=== PATIENT | male | born 1980 | race Caucasian/White ===

== ENCOUNTER 2021-11-16 08:31 | Outpatient (REF) | payer BC, SELFPAY | END 2021-11-16 08:32 | disposition home or self-care (01) | LOC: HO.HMGCLDS 08:31 | PROVIDERS: Visit Provider Internal Medicine | DX: Z20.822 Contact with and (suspected) exposure to COVID-19 (principal) | CPT/HCPCS: C9803; U0003; U0005 ==

== ENCOUNTER 2022-04-27 12:13 | Outpatient (REF) | payer BC, SELFPAY ==
[2022-04-27 12:35] LABS: Binax Internal Control QC Valid; Binax Now Covid-19 Ag Positive (Negative)
== END 2022-04-27 12:14 | disposition home or self-care (01) ==
LOC: HO.HMGCLDS 12:13
PROVIDERS: Visit Provider Internal Medicine
DX: J06.9 Acute upper respiratory infection, unspecified (principal); Z20.822 Contact with and (suspected) exposure to COVID-19
CPT/HCPCS: 87811; C9803

== ENCOUNTER 2024-02-27 07:18 | Emergency (ER) | payer SELFPAY ==
[2024-02-27] VITALS (8 sets, daily range): BP systolic 133–140; BP diastolic 74–83; PULSE 78–95; RESP 14–20; TEMP 36.3–36.4; O2SAT 96–100; BMI 22.5
--- NOTE | ~2024-02-27 | US_ITS ---
EXAMINATION: US ABDOMEN LIMITED CLINICAL INFORMATION: Right upper quadrant pain and elevated liver function tests.. COMPARISON: None available. TECHNIQUE: Real-time imaging of the right upper quadrant abdominal viscera. FINDINGS: PANCREAS: Normal. LIVER: The liver is prominent at 20.5 cm cephalocaudad. Echotexture normal. No focal mass. No intrahepatic biliary dilatation. GALLBLADDER: Normal. The gallbladder is physiologically distended without evidence of stones, sludge, polyps, wall thickening or pericholecystic fluid. COMMON BILE DUCT: Normal in caliber measuring 0.3 cm in diameter. RIGHT KIDNEY: Normal. No hydronephrosis. No renal calculi or focal parenchymal lesions. The kidney measures 11.8 cm in maximum dimension. FREE FLUID: None. US/US abdomen limited IMPRESSION: Hepatomegaly. No gallstones or biliary dilatation.
--- NOTE | ~2024-02-27 | XR_ITS ---
EXAMINATION: XR CHEST CLINICAL INFORMATION: Shortness of breath and chest pain COMPARISON: None available. TECHNIQUE: Frontal view of the chest was obtained. FINDINGS: Lungs clear. Heart and pulmonary vessels are normal. No congestive change. Slight elevation of the right hemidiaphragm of uncertain chronicity. XR/XR chest 1V IMPRESSION: No active disease.
--- NOTE | 2024-02-27 07:19 | ECG_ITS ---
Test Reason : CHEST PAIN Blood Pressure : / mmHG Vent. Rate : 089 BPM Atrial Rate : 089 BPM P-R Int : 158 ms QRS Dur : 094 ms QT Int : 386 ms P-R-T Axes : 084 069 070 degrees QTc Int : 469 ms Artifact in tracing Normal sinus rhythm Normal ECG No previous ECGs available Referred By: Generic ED Physician Electronically Signed By:CHARLOTTE MARCELO
--- NOTE | 2024-02-27 07:31 | ED.CHESTPAIN ---
HPI - Chest Pain General Chief Complaint: Chest Pain Stated Complaint: CHEST PAIN Time Seen by Provider: 02/27/24 07:20 Source: patient and family Mode of arrival: ambulatory Limitations: no limitations History of Present Illness HPI narrative: 44 y/o male with history of HTN presents today for evaluation of tight left-sided chest pain since last night.When he woke up this morning, the pain was worse and he had a nosebleed this morning. He states that he took aspirin last night for pain. Reports that he is able to move his left upper extremity due to weakness but reports intact sensation. Pain ranges from left lateral cervical region down left upper extremity. Pain is localized beneath inferior aspect of left scapula. Has associated cramping of the left lower extremity that is worse with the chest pain. Denies recent sickness or fevers. No tearing or ripping pain that radiates to the back. Denies tobacco use or smoking. Reports occasional alcohol use. On further questioning patient reports every other day use of alcohol, about half a pint. Further questioning reveals about 6 ounces of hard liquor daily. is at bedside and reports that patient has been vomiting bile and frequent nosebleeds in the morning. MD complaint: chest pain Onset (ago): day(s) Timing of current episode: constant Prior episodes: No Onset: during rest and during exertion Pain location: left chest Pain radiation: left arm and neck Severity: severe Quality: tightness Relieving factors: nothing Exacerbating factors: nothing Associated symptoms: nausea, vomiting and diaphoresis Treatment prior to arrival: aspirin Risk Factors Coronary artery disease risk factors: hypertension Related Data Previous Rx's ?Medication ?Instructions ?Recorded lidocaine 5 % topical patch 1 patch topical DAILY #15 ea 02/27/24 Allergies Allergy/AdvReac Type Severity Reaction Status Date / Time seafood Allergy Rash Verified 02/27/24 07:27 Review of Systems Review of Systems: Yes all other systems are reviewed and are negative PMFSH Social History Social History Smoked in Last 30 Days: No Use of substances other than those prescribed or required for medical reasons: No Advance Directives: No Advance Directives Information Provided: Yes Physical Exam Vital Signs: Vital Signs: Last Vital Signs Temp 97.4 F 02/27/24 12:26 Pulse 95 02/27/24 12:26 Resp 14 02/27/24 12:26 BP 133/82 02/27/24 12:26 Pulse Ox 96 04/16/24 12:26 O2 Del Method Room Air 02/27/24 12:26 BMI result Body Mass Index 22.5 Const: General: alert, Physically active, in distress, anxious and diaphoretic Nutritional Appearance: average body habitus and well nourished Orientation/consciousness: patient oriented x3 Limitations: no limitations HEENT: Head: Yes normal to inspection and Yes normocephalic Ears: hearing grossly normal bilaterally General nose exam: Normal external nose present, Normal nares present, Abnormal mucous membranes and turbinates present and no epistaxis Face and sinus: Yes face symmetric Mouth: Normal oral and palatal mucosa present Eyes: Visual Gonzalez: normal visual gonzalez by confrontation Conjunctivae: conjunctivae normal Sclerae: sclerae normal Corneas: corneas normal Neck: Neck: Yes normal visual inspection and Yes full ROM Lymphatic: no lymphadenopathy noted Chest: Chest palpation & inspection: normal inspection of the chest and abnormal palpation of chest wall (reports pain with palpation) Chest/axillae images: 1. 2. 3. Resp: Effort & Inspection: not able to speak in complete sentences (crying, tachypneic) Auscultation: clear to auscultation bilaterally, no crackles, no rales, no rhonchi, no wheezes and lung sounds not diminished Cardio: Rate: regular rate Rhythm: regular rhythm Heart sounds: S1 normal heart sound present and S2 normal heart sound present Bruits: no abdominal aortic bruits Peripheral pulses: Peripheral pulses 2+ throughout GI: Inspection: Yes normal to inspection, No Abdominal wall edema, No distended, No obesity, No visible herniation and No visible pulsation Palpation (GI): No Abdominal aortic bruit present, Soft to palpation, not firm, Tenderness to palpation present (GI) (reports tenderness to palpation epigastric and bilaterally upper quadrants) in the epigastrum, in the LUQ and in the RUQ, no guarding, not rigid, No hepatosplenomegaly present, no hernias, no masses and no pulsatile masses Auscultation: normal bowel sounds Neuro: General: patient oriented x3 Cranial nerves: Yes Facial sensation intact/muscles of mastication intact Course Reevaluation(s) Reevaluation #1: patient with a host of complaints including chest pain, feeling weak, shakey, vomiting, leg cramping and not sleeping. Patient did the entire interview with his eyes closed, very anxious. Serial EKG and troponin negative, ddimer negative. My impression is anxiety will give some benzodiazepines Time: 11:17 Medications Administered Discontinued Medications Generic Name Dose Route Start Last Admin Trade Name Simran PRN Reason Stop Dose Admin Aspirin 325 mg 02/27/24 07:34 02/27/24 07:40 Aspirin 325 Mg Tablet PO 02/27/24 07:35 325 mg ONCE ONE Administration Sodium Chloride 1,000 mls @ 999 mls/hr 02/27/24 07:30 02/27/24 10:01 Ns IVCONT 02/27/24 08:30 Infused .Q1H1M LAURI Infusion Lactated Ringer's 1,000 mls @ 999 mls/hr 02/27/24 09:45 02/27/24 11:16 Lr IV 02/27/24 10:45 Infused .Q1H1M LAURI Infusion Lorazepam 1 mg 02/27/24 11:12 02/27/24 11:16 Lorazepam 2 Mg/Ml Vial IVPUSH 02/27/24 11:13 1 mg ONCE ONE Administration Morphine Sulfate 2 mg 02/27/24 07:34 02/27/24 07:43 Morphine Sulfate 2 Mg/Ml Cartridge IVPUSH 02/27/24 07:35 2 mg ONCE ONE Administration Protocol Morphine Sulfate 2 mg 02/27/24 08:17 02/27/24 08:29 Morphine Sulfate 2 Mg/Ml Cartridge IVPUSH 02/27/24 08:18 2 mg ONCE ONE Administration Protocol Nitroglycerin 0.4 mg 02/27/24 07:26 02/27/24 07:42 Nitroglycerin 0.4 Mg Tab.Subl SUBLINGUAL 02/27/24 07:27 0.4 mg ONCE ONE Administration Ondansetron HCl 4 mg 02/27/24 07:51 02/27/24 07:54 Ondansetron Hcl 4 Mg/2 Ml Vial IVPUSH 02/27/24 07:52 4 mg ONCE ONE Administration Medical Decision Making Medical Decision Making MDM Narrative: 44 y/o male with history of hypertension presents today for evaluation of tight left-sided chest pain that started last night. This morning, he acute worsening of the chest with associated nose bleed, left-sided weakness and lower extremity cramping. On inital evaluation, he was in visible discomft, clenching his chest. ECG obtained on arrival was normal sinus rhythm with ventricular rate of 89, no ST changes, depression or elevations. With suspicion for ACS, ordered troponin, ASA and morphine. Patient had moderate relief of pain. He became nauseous and starting vomiting, relieved with IV zofran. With normal ECG and negative troponin, low suspicion for ACS or PA. HEART score is low suspicion for major adverse cardiac event. Labs are significant for hyperchloremic anion gap metabolic acidosis, which could be due to vomiting. AST and ALT are elevated with nearly 2:1 ratio, ordered US abdomen and lipase to assess for cholecystitis and pancreatitis. On exam, pain is reproducible with palpation of substernal/ xiphoid region. PERC score for PE is 0, <2% of PE, low clinical suspicion for PE at this time. Will hold off on CTA. 09:55- On reevaluation, patient reports continued pain on L lateral chest, reports pain with inspiration. Will order D-dimer at this time. 10:48 D-dimer negative, low suspicion for PE, dissection, acute occlusion. At this time, patient has 2 normal ECG and 2 negative troponins, low clinical suspicion for ACS. US abdomen is remarkable for hepatomegaly. In the setting of an elevated AST & ALT (2:1), high suspicion for alcoholic hepatitis. Ordered hepatitis panel to r/o other etiologies. 11:53- Patient is resting after administration of ativan. He reports improvement of pain but still present at 5/10. High clinical suspicion that pain is likely muscular and in part due to anxiety considering negative ACS and PE work up. Patient is resting comfortably and VSS. Incidental finding of alcoholic hepatitis, which is likely cause of patient's abdominal pain. Safe to discharge home with lidocaine patch and strict return precuations. Patient in agreement with plan. Differential Diagnosis Differential Diagnoses: The differential diagnosis associated with the presentation includes pulmonary embolism, alcoholic hepatitis, splenic rupture, ACS, cholecystitis, pancreatitis, PA, angina, unstable angina, AAA, aortic dissection, pericarditis, myocarditis, costochronditis, anxiety Admission/Observation Consideration of admission/observation: Escalation of care including admission/observation considered Lab Data MDM Lab Attestation statement: I reviewed the patient's lab results. elevated LFTs, mild hyponatremia 02/27/24 07:35 02/27/24 07:35 Labs: Lab Results 04/16/24 04/16/24 04/16/24 Range/Units 07:35 08:07 09:41 WBC 6.9 (4.8-10.8) X10*3/uL RBC 4.41 L (4.60-5.80) X10*6/uL Hgb 14.0 (14.0-18.0) g/dl Hct 39.7 L (42.0-52.0) % MCV 90.0 (80.0-98.0) fL MCH 31.7 (27.0-33.0) pg MCHC 35.3 (31.0-36.0) g/dl RDW 16.4 H (11.0-16.0) % Plt Count 251 (160-400) X10*3/uL MPV 10.6 (9.4-12.4) fL Immature Gran % (Auto) 0.4 (0.0-0.4) % Neut % (Auto) 65.8 (45-73) % Lymph % (Auto) 26.5 (20-40) % [place]dwell % (Auto) 6.2 (2-11) % Eos % (Auto) 0.1 (0-4) % Baso % (Auto) 1.0 (0-2) % Lymph # (Auto) 1.8 (1.2-4.9) X10*3/uL [place]dwell # (Auto) 0.4 (0.1-1.2) X10*3/uL Eos # (Auto) 0.0 (0.0-0.4) X10*3/uL Baso # (Auto) 0.1 (0.0-0.2) X10*3/uL Abs Immat Gran (auto) 0.03 (0.00-0.03) X10*3/uL Absolute Neuts (auto) 4.5 (2.0-8.3) x10*3/uL Absolute Nucleated RBC 0.000 (0.0-0.012) X10*3/uL Nucleated RBC % (auto) 0.0 (0.0-0.2) /100WBC PT 13.6 H (11.1-13.3) SEC INR 1.1 (0.9-1.1) APTT 36.6 (26.0-36.8) SEC D-Dimer High Sensitivty NG/ML Sodium 132 L (135-145) mmol/L Potassium 4.1 (3.3-5.1) mmol/L Chloride 95 L (96-108) mmol/L Carbon Dioxide 19 L (22-29) mmol/L Anion Gap 22 H (12-20) BUN 20 H (9-16) mg/dL Creatinine 1.14 (0.5-1.4) mg/dL Estim Creat Clear Calc 82.1 Estimated GFR > 60 Random Glucose 93 (60-115) mg/dL Calcium 9.1 (8.4-10.2) mg/dL Magnesium 1.6 (1.6-2.6) mg/dL Total Bilirubin 2.3 H (0.0-1.0) mg/dL Direct Bilirubin 1.1 H (0.0-0.5) mg/dL AST 284 H (5-37) U/L ALT 103 H (0-40) U/L Alkaline Phosphatase 296 H (39-117) U/L Troponin I High Sens < 2.7 (<3.5-35.0) ng/L B-Natriuretic Peptide 18 (<100) pg/mL Total Protein 9.5 H (6.5-8.0) g/dL Albumin 3.4 L (3.5-5.0) g/dL Lipase 70 (8-78) U/L Urine Color Dark Yellow Urine Appearance Clear Urine pH 5.5 (5.0-9.0) Ur Specific [place] 1.025 (1.005-1.025) Urine Protein Trace (Neg-Trace) mg/dL Urine Glucose (UA) Negative (Negative) mg/dL Urine Ketones Trace (Negative) mg/dL Urine Blood Negative (Negative) Urine Nitrite Negative (Negative) Ur Leukocyte Esterase Negative (Negative) Urine Opiates Screen POSITIVE H (Not Detect) Urine Fentanyl Screen Not Detected (Not Detect) Ur Barbiturates Screen Not Detected (Not Detect) Ur Phencyclidine Scrn Not Detected (Not Detect) Ur Amphetamines Screen Not Detected (Not Detect) U Benzodiazepines Scrn Not Detected (Not Detect) Urine Cocaine Screen Not Detected (Not Detect) U Marijuana (THC) Screen POSITIVE H (Not Detect) Influenza Type A (PCR) NEGATIVE (Negative) Influenza Type B (PCR) NEGATIVE (Negative) RSV RNA Qual (PCR) NEGATIVE (Negative) SARS-CoV-2 RNA (RT-PCR) NEGATIVE (Negative) 02/27/24 Range/Units 10:07 WBC (4.8-10.8) X10*3/uL RBC (4.60-5.80) X10*6/uL Hgb (14.0-18.0) g/dl Hct (42.0-52.0) % MCV (80.0-98.0) fL MCH (27.0-33.0) pg MCHC (31.0-36.0) g/dl RDW (11.0-16.0) % Plt Count (160-400) X10*3/uL MPV (9.4-12.4) fL Immature Gran % (Auto) (0.0-0.4) % Neut % (Auto) (45-73) % Lymph % (Auto) (20-40) % Caldwell % (Auto) (2-11) % Eos % (Auto) (0-4) % Baso % (Auto) (0-2) % Lymph # (Auto) (1.2-4.9) X10*3/uL [place]dwell # (Auto) (0.1-1.2) X10*3/uL Eos # (Auto) (0.0-0.4) X10*3/uL Baso # (Auto) (0.0-0.2) X10*3/uL Abs Immat Gran (auto) (0.00-0.03) X10*3/uL Absolute Neuts (auto) (2.0-8.3) x10*3/uL Absolute Nucleated RBC (0.0-0.012) X10*3/uL Nucleated RBC % (auto) (0.0-0.2) /100WBC PT (11.1-13.3) SEC INR (0.9-1.1) APTT (26.0-36.8) SEC D-Dimer High Sensitivty < 150 NG/ML Sodium (135-145) mmol/L Potassium (3.3-5.1) mmol/L Chloride (96-108) mmol/L Carbon Dioxide (22-29) mmol/L Anion Gap (12-20) BUN (9-16) mg/dL Creatinine (0.5-1.4) mg/dL Estim Creat Clear Calc Estimated GFR Random Glucose (60-115) mg/dL Calcium (8.4-10.2) mg/dL Magnesium (1.6-2.6) mg/dL Total Bilirubin (0.0-1.0) mg/dL Direct Bilirubin (0.0-0.5) mg/dL AST (5-37) U/L ALT (0-40) U/L Alkaline Phosphatase (39-117) U/L Troponin I High Sens < 2.7 (<3.5-35.0) ng/L B-Natriuretic Peptide (<100) pg/mL Total Protein (6.5-8.0) g/dL Albumin (3.5-5.0) g/dL Lipase (8-78) U/L Urine Color Urine Appearance Urine pH (5.0-9.0) Ur Specific [place] (1.005-1.025) Urine Protein (Neg-Trace) mg/dL Urine Glucose (UA) (Negative) mg/dL Urine Ketones (Negative) mg/dL Urine Blood (Negative) Urine Nitrite (Negative) Ur Leukocyte Esterase (Negative) Urine Opiates Screen (Not Detect) Urine Fentanyl Screen (Not Detect) Ur Barbiturates Screen (Not Detect) Ur Phencyclidine Scrn (Not Detect) Ur Amphetamines Screen (Not Detect) U Benzodiazepines Scrn (Not Detect) Urine Cocaine Screen (Not Detect) U Marijuana (THC) Screen (Not Detect) Influenza Type A (PCR) (Negative) Influenza Type B (PCR) (Negative) RSV RNA Qual (PCR) (Negative) SARS-CoV-2 RNA (RT-PCR) (Negative) Independent Interpretation I performed an independent interpretation of an: EKG, Plain X-Ray and Ultrasound Interpretation: ECG: normal sinus rhythm with ventricular rate of 89, no ST changes, depression or elevations. CXR: normal chest xray with clear costophrenic angles and rib markings, no fracture US w/ hepatomegaly, agree w/ radiology read Radiology Impression Discussion of test interpretation with radiology: I have reviewed the radiologist's reading. Radiologist Impression: Test Reason : CHEST PAIN Blood Pressure : / mmHG Vent. Rate : 089 BPM Atrial Rate : 089 BPM P-R Int : 158 ms QRS Dur : 094 ms QT Int : 386 ms P-R-T Axes : 084 069 070 degrees QTc Int : 469 ms Normal sinus rhythm Normal ECG No previous ECGs available Test Reason : CHEST PAIN Blood Pressure : / mmHG Vent. Rate : 087 BPM Atrial Rate : 087 BPM P-R Int : 174 ms QRS Dur : 100 ms QT Int : 386 ms P-R-T Axes : 073 062 061 degrees QTc Int : 464 ms Normal sinus rhythm Normal ECG When compared with ECG of 27-FEB-2024 07:21, No significant change was found EXAMINATION: XR CHEST CLINICAL INFORMATION: Shortness of breath and chest pain COMPARISON: None available. TECHNIQUE: Frontal view of the chest was obtained. FINDINGS: Lungs clear. Heart and pulmonary vessels are normal. No congestive change. Slight elevation of the right hemidiaphragm of uncertain chronicity. XR/XR chest 1V IMPRESSION: No active disease. EXAMINATION: US ABDOMEN LIMITED CLINICAL INFORMATION: Right upper quadrant pain and elevated liver function tests.. COMPARISON: None available. TECHNIQUE: Real-time imaging of the right upper quadrant abdominal viscera. FINDINGS: PANCREAS: Normal. LIVER: The liver is prominent at 20.5 cm cephalocaudad. Echotexture normal. No focal mass. No intrahepatic biliary dilatation. GALLBLADDER: Normal. The gallbladder is physiologically distended without evidence of stones, sludge, polyps, wall thickening or pericholecystic fluid. COMMON BILE DUCT: Normal in caliber measuring 0.3 cm in diameter. RIGHT KIDNEY: Normal. No hydronephrosis. No renal calculi or focal parenchymal lesions. The kidney measures 11.8 cm in maximum dimension. FREE FLUID: None. US/US abdomen limited IMPRESSION: Hepatomegaly. No gallstones or biliary dilatation. Independent Historian Clinical information obtained from an independent historian. History obtained from or confirmed by: Spouse Tests considered The following testing was considered but not selected: CTA considered, ddimer negative, low clinical suspicion without risk factors. Prescription Management I considered prescription management with: Pain Medication Chronic Conditions Patient?s care impacted by: Hypertension Scores Heart Score History: -2- highly suspicious ECG: -0- normal Age: -0- < or = 45 Risk factory: -1- 1 or 2 risk factors Troponin: -0- < or = normal limit Score: 3 Risk: 1.7% Critical Care Time Critical Care Time Critical Care Time: Yes Total Critical Care Time: 49 Attestation: I have personally provided critical care time exclusive of time spent on separately billable procedures. Time includes review of lab data, radiology results, multiple bedside re-evaluations and reassessements and monitoring for potential decompensation. Intervention performed as documented. Discharge Plan Discharge Clinical Impression: Atypical chest pain, Alcoholic hepatitis Patient Disposition: Home, Self-Care Instructions: Chest Pain (ED), Chest Wall Pain (ED), Alcoholic Hepatitis (ED) Additional Instructions: Your workup today in the ED was reassuring. Your cardiac enzymes and ECG were negative for a heart attack and not concerning for cardiac injury. Your lab for blood clots (D-dimer) was also negative. Your labs shows elevated liver enzymes and US show enlargement of your liver. This is consistent with alcoholic hepatitis. Your abdominal pain is most likely due to this. It can also cause nausea and vomiting. It is important that you drink plenty of water and limit consumption of alcoholic beverages. Use the prescribed lidocaine patches to apply to your back for pain. If you develop new or worsening symptoms call 911 or come back to the ER for further evaluation. Prescriptions: New lidocaine 5 % adhesive patch,medicated 1 patch topical DAILY Qty: 15 0RF Rx Instructions: leave on most painful area for up to 12 hrs Referrals: [facility] [place] Family Medicine [Provider Group] [facility] [place] [Provider Group] Stand Alone Forms: Work/School Release Interventions: ED Discharge Assessment Last Done: 02/27/24 12:26 Discharge Date/Time: 02/27/24 12:28 Print Language: Kazakh
[2024-02-27 07:39] LABS: MANUAL DIFF FLAG NO
[2024-02-27] MEDS: Aspirin 325 MG TABLET PO (07:40)
[2024-02-27 07:41] LABS: Basophils Absolute Auto 0.1 X10*3/uL (0.0-0.2); Eosinophils Percent Auto 0.1 % (0-4); Hematocrit 39.7 % (42.0-52.0); Imm Gran Abs Auto 0.03 X10*3/uL (0.00-0.03); Imm Gran Pct Auto 0.4 % (0.0-0.4); Lymphocytes Absolute Auto 1.8 X10*3/uL (1.2-4.9); Lymphocytes Percent Auto 26.5 % (20-40); Mean Corpuscular HGB Conc 35.3 g/dl (31.0-36.0); Mean Corpuscular Hemoglobin 31.7 pg (27.0-33.0); Mean Platelet Volume 10.6 fL (9.4-12.4); Monocytes Absolute Auto 0.4 X10*3/uL (0.1-1.2); Monocytes Percent Auto 6.2 % (2-11); Neutrophils Absolute Auto 4.5 x10*3/uL (2.0-8.3); Neutrophils Percent Auto 65.8 % (45-73); Platelet Count 251 X10*3/uL (160-400); Red Blood Count 4.41 X10*6/uL (4.60-5.80); Red Cell Distribution Width 16.4 % (11.0-16.0); White Blood Count 6.9 X10*3/uL (4.8-10.8)
[2024-02-27] MEDS: Nitroglycerin 0.4 MG TAB.SUBL SUBLINGUAL (07:42)
[2024-02-27] MEDS: Morphine Sulfate 2 MG/ML CARTRIDGE IVPUSH ×2 (07:43→08:29)
[2024-02-27] MEDS: 0.9 % Sodium Chloride 1,000 ML 999 ML IVCONT (07:44)
[2024-02-27 07:46] LABS: INTERNATIONAL NORM RATIO 1.1 (0.9-1.1); Prothrombin Time 13.6 SEC (11.1-13.3)
[2024-02-27 07:49] LABS: Partial Thromboplastin Time 36.6 SEC (26.0-36.8)
[2024-02-27] MEDS: ondansetron HCL 4 MG/2 ML VIAL IVPUSH (07:54)
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
[2024-02-27 08:03] LABS: B Type Natriuretic Peptide 18 pg/mL (<100)
[2024-02-27 08:11] LABS: Alanine Aminotransferase 103 U/L (0-40); Albumin Level 3.4 g/dL (3.5-5.0); Alkaline Phosphatase 296 U/L (39-117); Anion Gap 22 (12-20); Aspartate Amino Transferase 284 U/L (5-37); Bilirubin Direct 1.1 mg/dL (0.0-0.5); Bilirubin Total 2.3 mg/dL (0.0-1.0); Blood Urea Nitrogen 20 mg/dL (9-16); Calcium 9.1 mg/dL (8.4-10.2); Carbon Dioxide 19 mmol/L (22-29); Chloride 95 mmol/L (96-108); Creatinine Clr Calc Pharmacy 82.1; Estimated Glomerular Filt Rate > 60; Glucose Random 93 mg/dL (60-115); Magnesium 1.6 mg/dL (1.6-2.6); Potassium 4.1 mmol/L (3.3-5.1); Sodium 132 mmol/L (135-145); Total Protein 9.5 g/dL (6.5-8.0); Troponin-I High Sensitivity < 2.7 ng/L (<3.5-35.0)
[2024-02-27 08:46] LABS: Lipase 70 U/L (8-78)
[2024-02-27 08:57] LABS: Influenza A PCR NEGATIVE (Negative); Influenza B PCR NEGATIVE (Negative); Resp Syncy Virus RNA Qual PCR NEGATIVE (Negative); SARS COV2 PCR INHOUSE NEGATIVE (Negative)
--- NOTE | 2024-02-27 09:37 | PC.NURSE ---
Pt appears more comfortable, reports his pain has improved to 5/10.
[2024-02-27 09:50] LABS: Appearance Urine Clear; Color Urine Dark Yellow; Glucose Urine UA Negative (Negative); Leukocyte Esterase Urine Negative (Negative); Nitrite Urine Negative (Negative); PH 5.5 (5.0-9.0); Specific Gravity - Urine 1.025 (1.005-1.025); Urine Blood Negative (Negative); Urine Ketones Trace mg/dL (Negative); Urine Protein Trace mg/dL (Neg-Trace)
[2024-02-27 09:56] LABS: Amphetamine Screen Urine Not Detected (Not Detect); Barbiturates, Urine Not Detected (Not Detect); Benzodiazepines Screen Urine Not Detected (Not Detect); Cannabinoid Screen Urine POSITIVE (Not Detect); Cocaine Screen Urine Not Detected (Not Detect); Fentanyl, urine Not Detected (Not Detect); Opiate Screen Urine POSITIVE (Not Detect); Phencyclidine Screen Urine Not Detected (Not Detect)
--- NOTE | 2024-02-27 09:58 | ECG_ITS ---
Test Reason : CHEST PAIN Blood Pressure : / mmHG Vent. Rate : 087 BPM Atrial Rate : 087 BPM P-R Int : 174 ms QRS Dur : 100 ms QT Int : 386 ms P-R-T Axes : 073 062 061 degrees QTc Int : 464 ms Normal sinus rhythm Normal ECG When compared with ECG of 27-FEB-2024 07:21, No significant change was found Referred By: Damaris Hubbard Electronically Signed By:CHARLOTTE MARCELO
[2024-02-27] MEDS: Lactated Ringers 1,000 ML 999 ML IV (10:01)
[2024-02-27 10:23] LABS: D Dimer High Sensitivity < 150 NG/ML
[2024-02-27 10:39] LABS: Troponin-I High Sensitivity < 2.7 ng/L (<3.5-35.0)
--- NOTE | 2024-02-27 10:58 | PC.NURSE ---
Pt reports increase in chest pain/ tightness. Provider alerted, awaiting new order. VSS.
[2024-02-27] MEDS: LORazepam 2 MG/ML VIAL 1 MG IVPUSH (11:16)
== END 2024-02-27 12:28 | disposition home or self-care (01) ==
PROVIDERS: Physician Assistant; Emergency Provider Emergency Medicine
DX: R07.89 Other chest pain (principal); K70.10 Alcoholic hepatitis without ascites; I10 Essential (primary) hypertension; Z03.818 Encounter for observation for suspected exposure to other biological agents ruled out
CPT/HCPCS: 0241U; 36415; 71045; 76705; 80048; 80076; 80307; 81003; 83690; 83735; 83880; 84484; 85025; 85379; 85610; 85730; 93005; 96361; 96374; 96375; 96376; 99285; J2060; J2270; J2405; J7120

== ENCOUNTER → 2024-02-27 07:19 | Outpatient (BNV) | payer SELFPAY | PROVIDERS: Emergency Provider Emergency Medicine; Visit Provider Internal Medicine | DX: R07.9 Chest pain, unspecified (principal) | CPT/HCPCS: 93010 ==

== ENCOUNTER 2025-09-23 11:37 | Outpatient (AMB) | payer BC, SELFPAY ==
--- NOTE | 2025-09-23 11:42 | HO.NEPHOV ---
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 He recently had left flank pain with hematuria. He has history of renal calculus needing intervention in the past. This time he has passed the stone and seen urologist. Imaging done during this presentation showed him to have a renal mass as well as pre sacral mass. He had an intentional weight loss of 15 lb with night sweats, nausea, poor appetite, back pain and intermittent vomiting he also had recent gout. The renal mass was thought to be a hemorrhagic cyst. His renal functions have been normal. His blood pressure is well controlled on amlodipine. He had undergone biopsy of the presacral mass which was inconclusive and is scheduled for CT scan with contrast as per General surgery. He is not taking any diuretic. He denies taking excessive nonsteroidal anti-inflammatories. [facility] Medical History (Updated 09/23/25 @ 13:36 by Houston Meng MD) Presacral mass Left kidney mass Kidney stone GERD (gastroesophageal reflux disease) Surgical History (Updated 09/23/25 @ 11:52 by Galilea Riojas MA) H/O endoscopy H/O colonoscopy History of kidney surgery H/O hernia repair Family History (Updated 09/23/25 @ 11:46 by Galilea Riojas MA) Maternal Uncle Kidney transplant status Mother Kidney disease Breast cancer Sister Kidney disease Maternal Aunt Cervical cancer Father Prostate cancer Seizure Maternal Grandmother Alzheimer's dementia Social History (Updated 09/23/25 @ 11:48 by Galilea Riojas MA) Alcohol intake: current Comment: Socially Patient Tobacco Use Status: Never used Tobacco Review of Systems Const All systems reviewed & are unremarkable except as noted in HPI and below Physical Exam Vital Signs: Last Vital Signs Pulse 91 09/23/25 11:49 BP 140/90 H 09/23/25 11:49 Pulse Ox 97 09/23/25 11:49 Oxygen Delivery Method Room Air 09/23/25 11:49 BMI result Body Mass Index 24.7 Const General: comfortable and no acute distress Orientation/consciousness: patient oriented x3 HEENT Head: Yes normocephalic Mouth: Normal oral and palatal mucosa present Eyes EOM: EOMs intact bilaterally Neck Neck: Yes supple Resp Auscultation: clear to auscultation bilaterally Cardio Jugular venous distension: no JVD Rate: regular rate GI Palpation (GI): Soft to palpation Auscultation: normal bowel sounds General: Yes no CVA tenderness Back/Spine/Pelvis Back: no CVA tenderness Skin General skin exam: no rashes or lesions noted Neuro General: patient oriented x3 and moves all extremities Extrem General: Yes no pedal edema Results Reviewed Nephrology Results: Hgb, (14.0-18.0) 14.0 g/dl 02/27/24 WBC, (4.8-10.8) 6.9 X10*3/uL 02/27/24 Plt Count, (160-400) 251 X10*3/uL 02/27/24 Sodium, (135-145) 132 mmol/L L 02/27/24 Potassium, (3.3-5.1) 4.1 mmol/L 24 Chloride, (96-108) 95 mmol/L L 24 Carbon Dioxide, (22-29) 19 mmol/L L 02/27/24 BUN, (9-16) 20 mg/dL H 02/27/24 Creatinine, (0.5-1.4) 1.14 mg/dL 02/27/24 Calcium, (8.4-10.2) 9.1 mg/dL 02/27/24 Urine Protein, (Neg-Trace) Trace mg/dL 02/27/24 Assessment & Plan Assessment & Plan (1) Hypokalemia: Code(s): E87.6 - Hypokalemia Category: Medical (2) Renal mass: Code(s): N28.89 - Other specified disorders of kidney and ureter Category: Medical (3) Kidney stone: Code(s): N20.0 - Calculus of kidney Category: Medical (4) Renal cyst: Code(s): N28.1 - Cyst of kidney, acquired Category: Medical (5) Gout: Code(s): M10.9 - Gout, unspecified Category: Medical Qualifiers: Gout site: toe Gout etiology: unspecified cause Chronicity: acute Laterality: right Qualified Code(s): M10.9 - Gout, unspecified Plan Edgardo has 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 He has seen Urology. He had been having hypokalemia due to vomiting. He has a presacral mass as well as hepatomegaly and has seen Oncology and General surgery. Lymphoma/plasmacytoma/sarcoma needs to be ruled out. Oncology is following up the same. He is hypertensive and his blood pressure is well controlled on current medication regimen. His urine output is good. He does not have any orthostatic symptoms. He will need to be initiated on low-dose allopurinol and should keep his uric acid under 6. I shall initiate workup for his renal calculus and optimize his medication regimen for it with time based on evolving data. Answered all questions and follow-up was given. Orders: Orders Renin 3 Months E87.6 - Hypokalemia Protein Creatinine Ratio, Ur 3 Months E87.6 - Hypokalemia, N20.0 - Calculus of kidney, N28.1 - Cyst of kidney, acquired, N28.89 - Other specified disorders of kidney and ureter Immunofixation, Random Urine 3 Months E87.6 - Hypokalemia, N20.0 - Calculus of kidney, N28.1 - Cyst of kidney, acquired, N28.89 - Other specified disorders of kidney and ureter Lactate Dehydrogenase 3 Months N28.89 - Other specified disorders of kidney and ureter Aldost/Renin 3 Months E87.6 - Hypokalemia Aldosterone 3 Months E87.6 - Hypokalemia Immunofixation Pnl, Serum 3 Months E87.6 - Hypokalemia, N20.0 - Calculus of kidney, N28.1 - Cyst of kidney, acquired, N28.89 - Other specified disorders of kidney and ureter Coding Level of Care Code New Pt Level 4 (99539) Diagnoses Hypokalemia E87.6 Renal mass N28.89 Kidney stone N20.0 Renal cyst N28.1 Acute gout involving toe of right foot, unspecified cause M10.9 Gout site: toe Gout etiology: unspecified cause Chronicity: acute Laterality: right
[2025-09-23 11:49] VITALS: BP 140/90; PULSE 91; O2SAT 97; BMI 24.7
--- OUTSIDE RECORDS SUMMARY | 2025-09-23 13:41 | XMS_ITS | Encounter Summary ---
Author Organization [employer] Address [address] [place] [address] Care Team Providers Care Grounds Restoration Specialist Name Role Phone Jerri Briseno NP Primary Care Provider [phone] Reason for Referral * Consultation (Routine) - Authorized Specialty Diagnoses / Procedures Referred By Conthillary bridges Referred To Contact Gastroenterology Diagnoses Hepatomegaly Jerrica Mujica NP [address] [place] [address] Phone: tel: fax: Gastroenterology [facility] [address] [place] [address] Phone: tel: fax: Referral ID Status Reason Start Date Expiration Date Visits Requested Visits Authorized [id number] Authorized Specialty Services Required 08/11/2025 08/11/2026 1 1 Encounter Details Date Type Department Care Team (Late st Contact Info) Description 08/11/2025 Results Follow-Up Internal Medicine - [address] [phone] Jerrica Mujica NP [address] [place] [address] Social History Tobacco Use Types Packs/Day Years Used Date Smoking Tobacco: Former Cigarettes Smokeless Tobacco: Never Alcohol Use Standard Drinks/Week Comments Yes 10 (1 standard drink = 0.6 oz pu re alcohol) Housing Instability Answer Date Recorde d Are you worried that in the next 2 months you may not have stable housing? No 08/05/2025 Food Access & Nutrition Answer Date Rec orded Do you have access to a vari ety of food including fruits and vegetables? Yes 08/05/2025 Access to Healthcare Answer Date Record ed Within the last 3 months, ho w many times did you visit the emergency department for your medical care? 2 08/05/2025 Health Literacy Answer Date Recorded How often do you need to hav e someone help you when you read instructions, pamphlets, or other written material from your doctor or pharmacy? Never 08/05/2025 Caregiver: How often do you need to have someone help you when you read instructions, pamphlets, or other written material from your doctor or pharmacy? Not on file 08/05/2025 Financial Risk Answer Date Recorded How hard is it for you to pa y for the very basics like food, housing, medical care, and air conditioning / heating? Not asked 08/05/2025 Transportation Answer Date Recorded Has the lack of transportati on kept you from meetings, work, or from getting things needed for daily living? No Has the lack of transportati on kept you from medical appointments or from getting medications? No 08/05/2025 Social Isolation Answer Date Recorded How often do you feel lonely or isolated from th ose around you? Rarely 08/05/2025 Food Risk Answer Date Recorded Within the past 12 months we worried whether our food would run out before we got money to buy more. Sometimes true 025 Within the past 12 months th e food we bought just didn't last and we didn't have money to get more. Never true 08/05/2025 Dependent Care Answer Date Recorded Do you need help finding or paying for care for your loved ones. For example, children's ministry director or elderly care for an older adult? Patient declined 08/05/2025 Education Answer Date Recorded Do you think completing more education or training, like finishing a GED, going to college, or learning a trade, would be helpful for you? Patient declined 08/05/2025 Employment and Income Answer Date Recor ded During the last four weeks, have you been actively looking for work? Patient declined 08/05/2025 Living Situation Answer Date Recorded What is your living situation? Unrecognized valu e 08/05/2025 Sex and Gender Information Value Date Recorded Sex Assigned at Male 09/09/2025 3:29 PM EDT Legal Sex Male 1:51 PM EST Gender Identity Not on file Sexual Orientation Not on file documented as of this encounter Plan of Treatment Upcoming Encounters Date Type Department Care Team (Late st Contact Info) Description 10/07/2025 8:15 AM EST Appointment [facility] CT Scan [address] [place] [address] 12/02/2025 9:00 AM EST Office Visit [facility] Hematology Oncology [address] [place] [address] Isaias Sweeney MD [address] [place] [address] 01/13/2026 8:30 AM EST Office Visit Internal Medicine - [facility] [address] [place] [address] Jerri Briseno NP [address] [place] [address] 02/02/2026 1:20 PM EDT Consult Gastroenterology - [address] [phone] Yani Simmons NP [address] [address] Scheduled Referrals Name Type Priority Associated Diagnoses Order Schedule Ambulatory referral to Gastroenterology Outpatient Referral Routine Hepatomegaly 1 Occurrences starting 08/11/2025 until 08/11/2026 documented as of this encounter Visit Diagnoses Diagnosis Hepatomegaly- Primary documented in this encounter Additional Health Concerns Assessment Noted Time PHQ-9 Depression Total Score: 13 025 10:22 AM EDT documented as of this encounter Care Teams Grounds Restoration Specialist Relationship Specialty Start Date End Date Jerri Briseno NP [address] [place] [address] PCP - General Primary Care 08/05/25 documented as of this encounter
--- OUTSIDE RECORDS SUMMARY | 2025-09-23 13:41 | XMS_ITS | Encounter Summary ---
Author Organization [employer] Address [address] [place] [address] Care Team Providers Care Head Mixer Name Role Phone Jerri Briseno FIBERGLASS BONDING MACHINE TENDER Primary Care Provider [phone] Encounter Details Date Type Department Care Team (Late st Contact Info) Description 08/12/2025 Results Follow-Up Internal Medicine - [facility] [address] [place] [address] Jerri Briseno NP [address] [place] [address] Social History Tobacco Use Types Packs/Day Years [...] care for your loved ones. For example, child welfare worker or elderly care for an older adult? [...] on file documented as of this encounter Ordered Prescriptions Prescription Sig Dispense Quantity Refills Last Filled Start Date End Date magnesium 200 mg tablet Take 200 mg by mouth 1 (one) time each day for 14 days. 14 tablet 08/12/2025 08/26/2025 documented in this encounter Plan of Treatment Upcoming Encounters Date Type Department Care Team (Late st Contact Info) Description 10/07/2025 8:15 AM EST Appointment [facility] CT Scan [address] [place] [address] 12/02/2025 9:00 AM EST Office Visit [facility] Hematology Oncology [address] [place] [address] Mirlande-Isaias Duong MD [address] [place] [address] 01/13/2026 8:30 AM EST [facility] [address] [place] [address] Jerri Briseno NP [address] [place] [address] 02/02/2026 1:20 PM EDT Consult Gastroenterology - [address] [phone] Yani Simmons NP [address] [address] Scheduled Orders Name Type Priority Associated Diagnoses Orde r Schedule Magnesium Lab Routine Hypomagnesemia Expected: 08/19/2025 (Approximate), Expires: 08/12/2026 documented as of this encounter Visit Diagnoses Diagnosis Hypomagnesemia- Primary Disorders of magnesium metabolism documented in this encounter Additional Health Concerns Assessment Noted Time PHQ-9 Depression Total Score: 13 025 10:22 AM EDT documented as of this encounter Care Teams Head Mixer Relationship Specialty Start Date End Date Jerri Briseno NP [address] [place] [address] PCP - General Primary Care 08/05/25 documented as of this encounter
--- OUTSIDE RECORDS SUMMARY | 2025-09-23 13:41 | XMS_ITS | Clinical Summary ---
Author Organization [facility] Address [address] [place] [address] Phone Care Team Providers Care Radiagraph Operator Name Role Phone Jerri Briseno NP Primary Care Provider Allergies No known active allergies Medications tamsulosin (FLOMAX) 0.4 mg 24 hr capsule Take 1 capsule (0.4 mg total) by mouth 1 (one) time each day. Capsules should be taken 30 minutes following the same meal each day. 30 each 2 5 Active amLODIPine (NORVASC) 5 mg tablet Take 1 tablet (5 mg total) by mouth 1 (one) time each day. 90 each 5 08/12/20 26 Active ondansetron (ZOFRAN) 4 mg tablet Take 1 tablet (4 mg total) by mouth every 8 (eight) hours if needed for nausea or vomiting. Active predniSONE (DELTASONE) 20 mg tablet Take 3 tablets daily x 3 days, then 2 tablets daily x 3 days then 1 tablet daily x 3 days 18 tablet 5 Active magnesium 200 mg tablet Take 200 mg by mouth 1 (one) time each day for 14 days. 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 Gastroesophageal reflux disease 01/12/2023 Kidney stone 01/12/2023 Encounters Date Type Department Care Team Description 09/16/2025 8:45 AM EST Office Visit Internal Medicine - [address] [phone] Jerri Briseno NP HTN (hypertension), benign (Primary Dx); Renal mass; Presacral mass; Acute idiopathic gout involving toe of right foot 09/09/2025 9:15 AM EDT Office Visit [facility] Hematology Oncology [address] [place] [address] Isaias Olivas MD Left kidney mass (Primary Dx); Presacral mass; Transaminitis 09/08/2025 8:00 AM EDT Consult General Surgery [facility] [address] [phone] Vance Pantoja MD Presacral mass (Primary Dx) 08/29/2025 6:52 AM EDT - 08/29/2025 11:59 PM EDT Hospital Encounter [facility] Interventional Radiology [address] [place] [address] Other intra-abdominal and pelvic swelling, mass and lump Discharge Disposition: Home or Self Care 08/28/2025 2:35 PM EDT - 08/28/2025 11:59 PM EDT Hospital Encounter [facility] MRI [address] [place] [address] Left kidney mass; Presacral mass Discharge Disposition: Home or Self Care 08/28/2025 2:34 PM EDT - 08/28/2025 11:59 PM EDT Hospital Encounter [facility] MRI [address] [place] [address] Left kidney mass; Presacral mass Discharge Disposition: Home or Self Care 08/12/2025 9:30 AM EDT [facility] [address] Jerri Briseno NP Adult general medical examination (Primary Dx); Presacral mass; Left kidney mass; Kidney stone; Screening for metabolic disorder; Encounter for lipid screening for cardiovascular disease; Screening for prostate cancer; HTN (hypertension), benign 08/12/2025 Results Follow-Up Internal Medicine - [facility] [address] [place], [place] [phone] Jerri Briseno NP 08/11/2025 1:00 PM EDT Office Visit [facility] Hematology Oncology [address] [place] [phone] Isaias Olivas MD Left kidney mass (Primary Dx); Presacral mass; Transaminitis; Hyperbilirubinemia 08/11/2025 Results Follow-Up Internal Medicine - [facility] [address] [place], [place] [phone] Jerrica Mujica NP 08/11/2025 Results Follow-Up [facility] [address] [facility] [place] [place] [phone] Jerrica Mujica NP 08/11/2025 Results Follow-Up Internal Medicine - [facility] [address] [place], [place] [address], [place] [phone] Jerrica Mujica NP 08/08/2025 12:44 PM EDT - 08/08/2025 11:59 PM EDT Hospital Encounter Ultrasound - [facility] [address] [place], [place] [address] [place], [place] [phone] Abnormal urinalysis; Kidney stone Discharge Disposition: Home or Self Care 08/08/2025 10:58 AM EDT - 08/08/2025 11:59 PM EDT [facility] [address] [place], [place] [address], [place] [phone] Abnormal liver function test Discharge Disposition: Home or Self Care 08/08/2025 8:45 AM EDT [facility] [address] [place] [place] [address] [place] [place] [phone] Jerrica Mujica NP Kidney stone (Primary Dx); Renal mass; Presacral mass; Primary hypertension; Abnormal urinalysis; Abnormal liver function test; Hypomagnesemia; Elevated glucose level; Proteinuria, unspecified type; Costovertebral angle tenderness 08/07/2025 Telephone [facility] Li Anthony [place] 08/05/2025 1:57 PM EDT - 08/05/2025 5:05 PM EDT Emergency [facility] Emergency [address] [place] [address] Maximo Rivera MD Renal calculus, left (Primary Dx); Left renal mass; Presacral mass; Bilateral flank pain Discharge Disposition: Home or Self Care 08/05/2025 Telephone Internal Medicine - [facility] [address] [place] [address] Jerri Briseno NP from Last 3 Months Immunizations Immunization Administration Dates Next Due Td Tetanus diptheria (Tdvax) 7yo and older 04/16 Surgical History Surgery Date Site/Laterality Comments FLEXIBLE BRONCHOSCOPY W/ UPPER ENDOSCOPY HERNIA REPAIR COLONOSCOPY CYSTOSCOPY W/ LASER LITHOTRIPSY Medical History Medical History Date Comments Kidney stone Family History Medical History Relation Name Comments Prostate cancer Father Seizures Father Diabetes Maternal Grandmother Breast cancer Mother Relation Name Status Comments Father Maternal Grandmother Mother Alive Social History Tobacco Use Types Packs/Day Years Used Date Smoking Tobacco: Former Cigarettes Smokeless Tobacco: Never Tobacco Cessation:Counseling Given: Not Answered Alcohol Use Standard Drinks/Week Comments Yes 10 [...] for your loved ones. For example, children's nursery assistant or elderly care for an older adult? [...] on file Sexual Orientation Not on file Obstetrics History Last Filed Vital Signs Vital Sign Reading Time Taken Comments Blood Pressure 115/85 09/16/2025 8:48 AM EST A Pulse 88 09/16/2025 8:48 AM EST Temperature 36.8 C (98.2 F) 09/09/2025 9:13 AM EDT Respiratory Rate 15 08/29/2025 10:45 AM EDT Oxygen Saturation 100% 09/09/2025 9:13 AM EDT Inhaled Oxygen Concentration - - Weight 79.8 kg (176 lb) 09/16/2025 8:48 AM EST Height 177.8 cm (5' 10 ) 09/16/2025 8:48 AM EST Body Mass Index 25.25 09/16/2025 8:48 AM EST Plan of Treatment Upcoming Encounters Date Type Department Care Team (Late st Contact Info) Description 10/07/2025 8:15 AM EST Appointment [facility] CT Scan [address] [place] [address] 12/02/2025 9:00 AM EST Office Visit [facility] Hematology Oncology [address] [place] [phone] Isaias Sweeney MD [address] [place] [phone] 01/13/2026 8:30 AM EST [facility] [address] [place] [address] Jerri Briseno NP [address] [place] [address] 02/02/2026 1:20 PM EDT Consult Gastroenterology - [address] [facility] [address] [phone] Yani Simmons, DANK [address] [address] Health Maintenance Due Date Last Done Comments Hepatitis A Vaccines (1 of 2 - Risk 2-dose series) 1998 Hepatitis B Vaccines (1 of 3 - 19+ 3-dose series) 1998 COVID-19 Vaccine ( - 2024-2 6 season) 2025 Social Influencers of Health Screening 08/05/2026 08/05/2025 Hypertension/CHF/CAD Annual BMP Blood Test 08/08/2026 08/08/2025, 08/05/2025, 04/07/2025 Cholesterol Screening (Lipid Panel) 08/11/2030 08/11/2025 Colorectal Cancer Screening: Colonoscopy 03/13/2032 03/13/2022, 04/08/2020 DTaP,Tdap,and Td Vaccines (2 - Td or Tdap) 04/16/2033 04/16/2023 RSV Immunization Adult Patients (1 - 1-dose 75+ series) 2054 Depression Screening Completed 09/16/2025 HIB Vaccines Aged Out No longer eligi ble based on patient's age to complete this topic HIV Screening Discontinued HPV Vaccines Aged Out No longer eligi ble based on patient's age to complete this topic Hepatitis C Screening Discontinued IPV Vaccines Aged Out No longer eligi ble based on patient's age to complete this topic Influenza Vaccine Discontinued MMR Vaccines Aged Out No longer eligi ble based on patient's age to complete this topic Meningococcal ACWY Vaccine Aged Out N o longer eligible based on patient's age to complete this topic Meningococcal B Vaccine Aged Out No l onger eligible based on patient's age to complete this topic Pneumococcal Vaccine: Pediatrics (0 to 5 Years) and At-Risk Patients (6 to 49 Years) Aged Out No longer eligible based on patient's age to complete this topic RSV Immunization Patients Under 20 months Aged Out No longer eligible based on patient's age to complete this topic Varicella Vaccines Aged Out No longer eligible based on patient's age to complete this topic Medical Devices Implanted Type Area Client Services Account Manager Device Identifier Shelf Expiration Date Model / Serial / Lot Sponge Surgifoam Gel 12 X 7mm - [id number] - [id number] Implanted:Qty: 1 on 08/29/2025 by Destiny Lopez MD at [facility] Hemostasis Right: Pelvis [employer] [id number] 04/30/2029 1972 / [id number] / Procedures Procedure Name Priority Date/Time Associated Diagnosis Comments IR BX NDL ABDOMINAL/RETROPERITON EAL MASS PERC Routine 08/29/2025 9:28 AM EDT Other intra-abdominal and pelvic swelling, mass and lump FINE NEEDLE ASPIRATION Routine 8:59 AM EDT Other intra-abdominal and pelvic swelling, mass and lump TISSUE EXAM Routine 08/29/2025 8:58 AM EDT Other intra-abdominal and pelvic swelling, mass and lump PROTHROMBIN TIME WITH INR STAT 08/29/2025 7:23 AM EDT COMPLETE BLOOD COUNT Routine 08/29/2025 7:23 AM EDT MR PELVIS WO AND W CONTRAST Routine 08/28/2025 5:34 PM EDT Left kidney mass Presacral mass MR ABDOMEN WO AND W CONTRAST Routine 08/28/2025 5:33 PM EDT Left kidney mass Presacral mass MN PROTEIN ELECTROPHORETIC FRACTIONATION & QUANTITATION SERUM Routine 08/11/2025 2:16 PM EDT Left kidney mass Presacral mass MAGNESIUM Routine 08/11/2025 2:16 PM EDT Hypomagnesemia MN IMMUNOFIXATION ELECTROPHORESIS SERUM Routine 08/11/2025 2:16 PM EDT Kidney stone Left kidney mass Presacral mass LIPID PANEL WITH REFLEX TO DIRECT LDL Routine 08/11/2025 2:16 PM EDT Screening for metabolic disorder Encounter for lipid screening for cardiovascular disease PROSTATE SPECIFIC ANTIGEN SCREEN Routine 08/11/2025 2:16 PM EDT Screening for prostate cancer PROTEIN, TOTAL Routine 08/11/2025 2:16 PM EDT Left kidney mass Presacral mass IMMUNOGLOBULINS IGG, IGA, IGM Routine 08/11/2025 2:16 PM EDT Kidney stone Left kidney mass Presacral mass IMMUNOFIXATION ELECTROPHORESIS Routine 08/11/2025 2:16 PM EDT Kidney stone Left kidney mass Presacral mass IMMUNOFIXATION ELECTROPHORESIS Routine 08/11/2025 2:16 PM EDT Kidney stone Left kidney mass Presacral mass CORTISOL Routine 08/11/2025 2:16 PM EDT Presacral mass PROTEIN ELECTROPHORESIS, SERUM Routine 08/11/2025 2:16 PM EDT Left kidney mass Presacral mass BETA 2 MICROGLOBULIN, SERUM Routine 08/11/2025 2:16 PM EDT Left kidney mass Presacral mass LACTATE DEHYDROGENASE Routine 08/11/2025 2:16 PM EDT Left kidney mass Presacral mass US PELVIS NON OB LIMITED OR FOLLOWUP Today 08/08/2025 1:42 PM EDT Abnormal urinalysis Kidney stone US ABDOMEN COMPLETE Today 08/08/2025 1 :42 PM EDT Abnormal liver function test HEATH URINE CULTURE TUBE Routine 08/08/2025 9:31 AM EDT Abnormal urinalysis URINALYSIS WITH REFLEX MICROSCOPIC AND CULTURE Routine 08/08/2025 9:31 AM EDT Abnormal urinalysis URINALYSIS WITH REFLEX MICROSCOPIC AND CULTURE Routine 08/08/2025 9:31 AM EDT Abnormal urinalysis HEMOGLOBIN A1C Routine 08/08/2025 9:31 AM EDT Elevated glucose level MAGNESIUM Routine 08/08/2025 9:31 AM EDT Hypomagnesemia LIPASE Routine 08/08/2025 9:31 AM EDT Abnormal liver function test AMYLASE Routine 08/08/2025 9:31 AM EDT Abnormal liver function test COMPREHENSIVE METABOLIC PANEL Routine 08/08/2025 9:31 AM EDT Abnormal liver function test Elevated glucose level MICROALBUMIN CREATININE URINE RATIO Routine 08/08/2025 9:31 AM EDT Elevated glucose level Proteinuria, unspecified type HEATH URINE CULTURE TUBE STAT 08/05/2025 2:51 PM EDT URINALYSIS WITH REFLEX MICROSCOPIC AND CULTURE STAT 08/05/2025 2:51 PM EDT URINALYSIS WITH REFLEX MICROSCOPIC AND CULTURE STAT 08/05/2025 2:[address] ABDOMEN PELVIS WO CONTRAST STAT 08/05/2025 2:44 PM EDT CBC WITH AUTO DIFFERENTIAL STAT 08/05/2025 2:36 PM EDT COMPREHENSIVE METABOLIC PANEL STAT 08/05/2025 2:36 PM EDT CBC AND DIFFERENTIAL STAT 08/05/2025 2:36 PM EDT EXTERNAL COLONOSCOPY REPORT Routine 04/08/2020 11:55 AM EDT from Last 3 Months or Most Recently Relevant to Health Maintenance Results * IR Bx Ndl Abdominal/Retroperitoneal Mass Perc (08/29/2025 9:28 AM EDT) Anatomical Region Laterality Modality N/A Interventional R adiology 08/29/2025 4:49 PM EDT Impressions 08/29/2025 4:[address]-guided fine-needle and core biopsy of presacral mass.. -------- FINAL REPORT -------- Dictated By: Destiny Lopez Dictated Date: 08/29/2025 16:49 ET Assigned Physician: Destiny Lopez Reviewed and Electronically Signed By: Destiny Lopez Signed Date: 08/29/2025 16:51 ET Workstation ID: [id number] Transcribed By: Self Edit Transcribed Date: 08/29/2025 16:49 ET Narrative 08/29/2025 4:51 PM EDT INDICATION: Presacral mass PROCEDURE: Consent obtained for CT-guided biopsy of presacral mass prior relevant studies: August 05, 2025 MEDICATIONS: Local anesthesia: 10 cc of 1% buffered lidocaine administered subcutaneously. Sedation: Moderate intravenous sedation was initiated and maintained for 23 minutes while the patient was independently monitored by the radiology nurse under the supervision of the interventional radiologist. A total of 3 mg of Versed and 125 mcg of fentanyl administered during the procedure. Scanner: [employer] [address] Dose reduction technique: AEC (automated exposure control) Dose: total exam DLP 326 mGY per cm TECHNIQUE: Patient placed prone on the CT table and multiple axial images obtained of the pelvis. Appropriate area of the skin was marked, draped and prepped using maximum sterile barrier. Moderate sedation initiated with subsequent infiltration of local anesthetic. Under CT fluoroscopic guidance a 17-gauge coaxial needle was advanced into the periphery of the localized mass. Multiple 20-gauge fine-needle and 18-gauge core biopsy samples obtained. Gelfoam thrombin slurry injected upon removal of the coaxial needle. FINDINGS: Initial limited CT images of the abdomen demonstrate presacral mass similar to prior diagnostic imaging. Images obtained during localization demonstrate coaxial needle positioned within the periphery of the localized mass. Images obtained after biopsy demonstrate mild postbiopsy effect within the mass. No evidence of significant postbiopsy hemorrhage. SPECIMENS: Fine-needle samples placed in CytoLyt after creation of histological slides. Core biopsy samples placed into formalin. Single touch prep slide created with initial core sample. Preliminary pathology: Nondiagnostic fine-needle aspirate. Complications: None Procedure Note Destiny Lopez MD - 08/29/2025 INDICATION: Presacral mass PROCEDURE: Consent obtained for CT-guided biopsy of presacral mass prior relevant studies: August 05, 2025 MEDICATIONS: Local anesthesia: 10 cc of 1% buffered lidocaine administeredsubcutaneously. Sedation: Moderate intravenous sedation was initiated and maintained for23 minutes while the patient was independently monitored by the radiologynurse under the supervision of the interventional radiologist. A total of3 mg of Versed and 125 mcg of fentanyl administered during the procedure. Scanner: [employer] [address] Dose reduction technique: AEC (automated exposure control) Dose: total exam DLP 326 mGY per cm TECHNIQUE: Patient placed prone on the CT table and multiple axial imagesobtained of the pelvis. Appropriate area of the skin was marked, drapedand prepped using maximum sterile barrier. Moderate sedation initiatedwith subsequent infiltration of local anesthetic. Under CT fluoroscopicguidance a 17-gauge coaxial needle was advanced into the periphery of thelocalized mass. Multiple 20-gauge fine-needle and 18-gauge core biopsysamples obtained. Gelfoam thrombin slurry injected upon removal of thecoaxial needle. FINDINGS: Initial limited CT images of the abdomen demonstrate presacralmass similar to prior diagnostic imaging. Images obtained during localization demonstrate coaxial needle positionedwithin the periphery of the localized mass. Images obtained after biopsy demonstrate mild postbiopsy effect within themass. No evidence of significant postbiopsy hemorrhage. SPECIMENS: Fine-needle samples placed in CytoLyt after creation ofhistological slides. Core biopsy samples placed into formalin. Singletouch prep slide created with initial core sample. Preliminary pathology: Nondiagnostic fine-needle aspirate. Complications: None IMPRESSION: CT-guided fine-needle and core biopsy of presacral mass.. -------- FINAL REPORT -------- Dictated By: Destiny Lopez Dictated Date: 08/29/2025 16:49 ET Assigned Physician: Destiny Lopez Reviewed and Electronically Signed By: Destiny Lopez Signed Date: 08/29/2025 16:51 ET Workstation ID: [id number] Transcribed By: Self Edit Transcribed Date: 08/29/2025 16:49 ET us Joseph Taylor MD IMG IR PROCEDURES Final Result * Fine needle aspiration (08/29/2025 8:59 AM EDT) Final Diagnosis Pelvic Mass -fine needle aspirate: -NON-DIAGNOSTIC 09/03/2025 4:57 PM EDT [facility] at 1657 EDT Comment The specimen consists only of blood and scant connective tissue. If there is significant clinical atypia or continued growth of this lesion, re-biopsy or excision is recommended, as clinically appropriate. 09/03/2025 4:57 PM EDT [facility] Specimen A Adequacy Unsatisfactory for evaluation 09/03/2025 4:57 PM EDT [facility] Gross Description A. Pelvic Mass, : Received in saline is 30 ml of light pink cloudy fluid. Flow collected pass 2 divert to cell block. One thinPrep, and one cell block are made. Also received are two air dried and two alcohol fixed direct smears. Cell block placed in formalin at 1100, total formalin fixation time is 58 hours. rp 09/03/2025 4:57 PM EDT [facility] Intraoperative Consultation A. Pelvic Mass, : non diagnostic -acellular amorphous proteinaceous material 09/03/2025 4:57 PM EDT [facility] Disclaimer Unless otherwise specified, all tissue is 10% NB formalin fixed and paraffin embedded. Technical cytopathology services provided by [facility], at [address] [place] [address] (CLIA # [id number]/Mac Velasquez MD, Sand Cleaning Machine Operator.) 09/03/2025 4:57 PM EDT [facility] Fine Needle Aspirate Pelvic mass / Unknown 08/29/2025 8:59 AM EDT 08/29/2025 9:27 AM EDT us Joseph Taylor MD LAB PATHOLOGY ORDERABLES Final R esult [facility] [address] [place] [address], [place] [phone] * Tissue exam (08/29/2025 8:58 AM EDT) Addendum This addendum is issued to report Caldesmon stain performed at [facility] in [place], [place]. Caldesmon highlights muscle. Controls stain appropriately. There is no change to the diagnosis. 9:55 AM EDT [facility] Addendum electronically signed by Padmini Magaña MD on 09/05/2025 at 0955 EDT Final Diagnosis Pelvic Mass, biopsy: Non-diagnostic. Small fragments of muscle and benign connective tissue; no lesional tissue identified. 9:55 AM EDT [facility] at 1709 EDT Comment Immunohistochemical stains are performed on unstained slides (block A2), to identify lineage of spindled cells and exclude bland neoplasm, such as PEComa and are interpreted as follows: - SMA, desmin: positive in muscle fragments. - S-100, HMB45: Negative. - CD34: Highlights benign vessels in soft tissue. This pattern supports the above interpretation. Controls stain appropriately. 9:55 AM EDT [facility] Gross Description A. Pelvic Mass, : Labeled with the patient's name and information . Received in formalin is a 1.5 x 1.2 x 0.1 cm aggregate of soft to friable, garcias-white to red tissue fragments/cores admixed with mucoid material/blood. The specimen is wrapped in paper and submitted in toto in two cassettes, multiple pieces each (one H&E, +10 unstained slides for potential immunohistochemical stains), on each block, conserving tissue. A touch preparation is made. TS 9:55 AM EDT [facility] Intraoperative Consultation A. Pelvic Mass, : Fna -non diagnostic -acellular amorphous proteinaceous material 9:55 AM EDT [facility] Disclaimer NOTE: The immunohistochemical tests and in situ hybridization tests were developed and their performance characteristics were determined by [facility]. They have not been cleared or approved by the U.S. Food and Drug Administration. The FDA has determined that such clearance or approval is not necessary. These tests are used for clinical purposes. They should not be regarded as investigational or for research. This laboratory is certified under the Clinical Laboratory Improvement Amendments of 1988 (CLIA) as qualified to perform high complexity clinical laboratory testing. (controls appropriate) Unless otherwise specified, all tissue is 10% NB formalin fixed and paraffin embedded. 9:55 AM EDT [facility] Tissue Pelvic mass / Unknown 08/29/2025 8:58 AM EDT 08/29/2025 9:26 AM EDT us Joseph Taylor MD LAB PATHOLOGY ORDERABLES Edited Result - Final [facility] [address] [place] [address], [place] [phone] * Prothrombin time with INR (08/29/2025 7:23 AM EDT) [facility] Protime 12.3 10.6 - 13.9 sec LAB COAGULATION METHOD 08/29/2025 7:42 AM EDT [facility] INR 1.0 LAB COAGULATION METHOD 08/29/2025 7:42 AM EDT [facility] Blood Venous blood specimen / Unknown Venipuncture / Unknown 08/29/2025 7:23 AM EDT 08/29/2025 7:32 AM EDT us Destiny Lopez MD LAB BLOOD ORDERABLES Final Resu lt [facility] [address] [place] [address], [place] [phone] * (ABNORMAL) CBC (08/29/2025 7:23 AM EDT) [facility] WBC 7.3 4.8 - 10.8 K/mcL LAB HEMETOLOGY METHOD 08/29/2025 7:35 AM [facility] RBC 4.00(L) 4.50 - 5.50 M/mcL LAB HEMETOLOGY METHOD 08/29/2025 7:35 AM EDT [facility] Hemoglobin 14.0 13.5 - 17.5 g/dL LAB HEMETOLOGY METHOD 08/29/2025 7:35 AM T [facility] Hematocrit 39.8(L) 42.0 - 54.0 % LAB HEMETOLOGY METHOD 08/29/2025 7:35 AM [facility] MCV 99.0(H) 79.0 - 98.0 FL LAB HEMETOLOGY METHOD 08/29/2025 7:35 AM EDT [facility] MCH 34.8(H) 27.0 - 32.0 pcg LAB HEMETOLOGY METHOD 08/29/2025 7:35 AM EDT [facility] MCHC 35.2 32.0 - 37.0 g/dL LAB HEMETOLOGY METHOD 08/29/2025 7:35 AM EDT [facility] RDW 14.2 11.0 - 15.0 % LAB HEMETOLOGY METHOD 08/29/2025 7:35 AM EDT [facility] Platelets 188 130 - 400 K/mcL LAB HEMETOLOGY METHOD 08/29/2025 7:35 AM EDT [facility] MPV 10.1 7.0 - 11.0 FL LAB HEMETOLOGY METHOD 08/29/2025 7:35 AM EDT [facility] NRBC 0.0 <1.0 % LAB HEMETOLOGY METHOD 08/29/2025 7:35 AM EDT [facility] NRBC Absolute 0.00 <0.10 K/mcL LAB HEMETOLOGY METHOD 08/29/2025 7:35 AM EDT [facility] Blood Venous blood specimen / Unknown Venipuncture / Unknown 08/29/2025 7:23 AM EDT 08/29/2025 7:32 AM EDT us Destiny Lopez MD LAB BLOOD ORDERABLES Final Resu lt [facility] [address] [place] [address], [place] [phone] * MR Pelvis wo and w Contrast (08/28/2025 5:34 PM EDT) Anatomical Region Laterality Modality Pelvis, Body Magnetic Resonan ce 09/03/2025 8:09 AM EDT Impressions 09/03/2025 8:40 AM EDT Elongated enhancing presacral mass. There are low signal tubular structures in the mass suggestive of flow voids, and this could represent a vascular lesion such as a hemangioma. However, the imaging features are not definitive and tissue sampling is recommended. -------- FINAL REPORT -------- Dictated By: Luis Armando Vivar Dictated Date: 09/03/2025 08:09 ET Assigned Physician: Luis Armando Vivar Reviewed and Electronically Signed By: Luis Armando Vivar Signed Date: 09/03/2025 08:40 ET Workstation ID: [id number] Transcribed By: Self Edit Transcribed Date: 09/03/2025 08:38 ET Narrative 09/03/2025 8:40 AM EDT PROCEDURE: Contrast enhanced MRI of the pelvis. TECHNIQUE: Multiplanar multisequence MRI of the pelvis with and without intravenous contrast administration. IV contrast dose: 15 mL Dotarem from a 15 mL vial with 0 mL discarded. HISTORY: presacral mass COMPARISON: 08/02/2025. FINDINGS: T2 hyperintense, T1 hypointense presacral mass measuring 8.1 cm craniocaudal and 4.0 x 1.9 cm transversely. The mass broadly abuts the anterior sacrum, but there is no apparent reactive bony change. There are internal linear/tubular structures suggestive of flow voids. The mass enhances following gadolinium administration. It is unchanged in the short interval since the 08/05/[address] and is not present on previous CTs obtained on 11/24/2021 and 02/21/2014. Mildly trabeculated urinary bladder. Prostate gland seminal vesicles are grossly normal. Dedicated prostate imaging (diffusion-weighted and dynamic contrast-enhanced images) was not performed. Visualized bowel loops are normal. No pelvic ascites. No pelvic lymphadenopathy. No marrow signal abnormality. Procedure Note Luis Armando Vivar MD - 09/03/2025 PROCEDURE: Contrast enhanced MRI of the pelvis. TECHNIQUE: Multiplanar multisequence MRI of the pelvis with and withoutintravenous contrast administration. IV contrast dose: 15 mL Dotarem from a 15 mL vial with 0 mL discarded. HISTORY: presacral mass COMPARISON: 08/02/2025. FINDINGS: T2 hyperintense, T1 hypointense presacral mass measuring 8.1 cmcraniocaudal and 4.0 x 1.9 cm transversely. The mass broadly abuts theanterior sacrum, but there is no apparent reactive bony change. There areinternal linear/tubular structures suggestive of flow voids. The massenhances following gadolinium administration. It is unchanged in theshort interval since the 08/05/[address] and is not present onprevious CTs obtained on 11/24/2021 and 02/21/2014. Mildly trabeculated urinary bladder. Prostate gland seminal vesicles are grossly normal. Dedicated prostateimaging (diffusion-weighted and dynamic contrast-enhanced images) was notperformed. Visualized bowel loops are normal. No pelvic ascites. No pelvic lymphadenopathy. No marrow signal abnormality. IMPRESSION: Elongated enhancing presacral mass. There are low signal tubularstructures in the mass suggestive of flow voids, and this could representa vascular lesion such as a hemangioma. However, the imaging features arenot definitive and tissue sampling is recommended. -------- FINAL REPORT -------- Dictated By: Luis Armando Vivar Dictated Date: 09/03/2025 08:09 ET Assigned Physician: Luis Armando Vivar Reviewed and Electronically Signed By: Luis Armando Vivar Signed Date: 09/03/2025 08:40 ET Workstation ID: [id number] Transcribed By: Self Edit Transcribed Date: 09/03/2025 08:38 ET Isaias Sweeney MD [facility] MRI PROCEDURES Final Result * MR Abdomen wo and w Contrast (08/28/2025 5:33 PM EDT) Anatomical Region Laterality Modality Body Magnetic Resonan ce 08/31/2025 1:29 PM EDT Impressions 09/01/2025 1:46 PM EDT 1. 2 cm lesion exophytic from the upper pole of the left kidney. This demonstrates imaging features consistent with a hemorrhagic cyst. 2. A presacral mass noted on CT is not well evaluated on this exam of the abdomen. -------- FINAL REPORT -------- Dictated By: Luis Armando Vivar Dictated Date: 08/31/2025 13:29 ET Assigned Physician: Luis Armando Vivar Reviewed and Electronically Signed By: Luis Armando Vivar Signed Date: 09/01/2025 13:46 ET Workstation ID: [id number] Transcribed By: Self Edit Transcribed Date: 09/01/2025 13:40 ET Narrative 09/01/2025 1:46 PM EDT PROCEDURE: MRI of the abdomen with intravenous contrast. HISTORY: renal mass, presacral mass. TECHNIQUE: Multiplanar multisequence MRI of the abdomen with and without intravenous contrast. IV contrast dose: 15 mL Dotarem from a 15 mL vial with 0 mL discarded. COMPARISON: CT 08/05/2025. FINDINGS: LOWER THORAX: Normal. LIVER: No focal lesion. Mild steatosis on out of phase imaging. The portal and hepatic veins are patent. BILIARY: Normal gallbladder. Normal caliber biliary tree. No ductal dilatation or filling defect. PANCREAS: No focal lesion. No ductal dilatation. SPLEEN: Normal. Small splenule. ADRENAL GLANDS: Normal. KIDNEYS: There is a 2.0 x 1.9 x 1.8 cm lesion exophytic from the upper pole left kidney. This is intermediate in signal on T2-weighted imaging and hyperintense on fat saturated T1-weighted imaging. No associated enhancement. Small additional bilateral simple cortical cysts. Visible portions of the collecting systems are normal. RETROPERITONEUM: No mass or lymphadenopathy. VASCULATURE: No aneurysm. BOWEL/MESENTERY: Visible portions are normal. ABDOMINAL WALL: Visible portions are normal. BONES: No significant degenerative change. No visible bony lesion. OTHER: A presacral mass noted on CT is partially visible on coronal images but not well evaluated on this study. Procedure Note Luis Armando Vivar MD - 09/01/2025 PROCEDURE: MRI of the abdomen with intravenous contrast. HISTORY: renal mass, presacral mass. TECHNIQUE: Multiplanar multisequence MRI of the abdomen with and withoutintravenous contrast. IV contrast dose: 15 mL Dotarem from a 15 mL vial with 0 mL discarded. COMPARISON: CT 08/05/2025. FINDINGS: LOWER THORAX: Normal. LIVER: No focal lesion. Mild steatosis on out of phase imaging. Theportal and hepatic veins are patent. BILIARY: Normal gallbladder. Normal caliber biliary tree. No ductaldilatation or filling defect. PANCREAS: No focal lesion. No ductal dilatation. SPLEEN: Normal. Small splenule. ADRENAL GLANDS: Normal. KIDNEYS: There is a 2.0 x 1.9 x 1.8 cm lesion exophytic from the upperpole left kidney. This is intermediate in signal on T2-weighted imagingand hyperintense on fat saturated T1-weighted imaging. No associatedenhancement. Small additional bilateral simple cortical cysts. Visibleportions of the collecting systems are normal. RETROPERITONEUM: No mass or lymphadenopathy. VASCULATURE: No aneurysm. BOWEL/MESENTERY: Visible portions are normal. ABDOMINAL WALL: Visible portions are normal. BONES: No significant degenerative change. No visible bony lesion. OTHER: A presacral mass noted on CT is partially visible on coronal imagesbut not well evaluated on this study. IMPRESSION: 1. 2 cm lesion exophytic from the upper pole of the left kidney. Thisdemonstrates imaging features consistent with a hemorrhagic cyst. 2. A presacral mass noted on CT is not well evaluated on this exam of theabdomen. -------- FINAL REPORT -------- Dictated By: Luis Armando Vivar Dictated Date: 08/31/2025 13:29 ET Assigned Physician: Luis Armando Vivar Reviewed and Electronically Signed By: Luis Armando Vivar Signed Date: 09/01/2025 13:46 ET Workstation ID: [id number] Transcribed By: Self Edit Transcribed Date: 09/01/2025 13:40 ET Subramdannielle Sweeney MD [facility] MRI PROCEDURES Final Result * Prostate specific antigen screen (08/11/2025 2:16 PM EDT) PSA 0.57 0.00 - 4.00 ng/mL LAB CHEMISTRY METHOD 08/12/2025 1:07 PM EDT [facility] Blood Venous blood specimen / Unknown Venipuncture / Unknown 08/11/2025 2:16 PM EDT 08/11/2025 4:35 PM EDT Narrative [facility] - 08/12/2025 1:07 PM EDT The Siemens Advia Centaur Chemiluminescent Immunoassay is used. Results obtained with different assay methods or kits cannot be used interchangeably. Results cannot be interpreted as absolute evidence of the presence or absence of malignant disease. Jerri Briseno NP LAB BLOOD ORDERABLES Final Resu lt Performing Organization Address [facility]/ZIP Co de Phone Number [facility] [address] [place] [address], [place] [phone] * Pathologist Review Immunofixation (08/11/2025 2:16 PM EDT) Pathologist Interpretation Brandie Hoang MD 08/12/2025 10:42 AM EDT [facility] Blood Venous blood specimen / Unknown Venipuncture / Unknown 08/11/2025 2:16 PM EDT 08/11/2025 4:35 PM EDT Isaias Sweeney MD LAB BLOOD ORDERABLE S Final Result Performing Organization Address [facility] Co de Phone Number [facility] [address] [place] [address], [place] [phone] * PATHOLOGIST REVIEW PROTEIN ELECTROPHORESIS (08/11/2025 2:16 PM EDT) Pathologist Interpretation Brandie Hoang MD 08/13/2025 1:58 PM EDT [facility] Blood Venous blood specimen / Unknown Venipuncture / Unknown 08/11/2025 2:16 PM EDT 08/11/2025 4:35 PM EDT Isaias Sweeney MD LAB BLOOD ORDERABLE S Final Result Performing Organization Address [facility]/ZIP Co de Phone Number [facility] [address] [place] [address], [place] [phone] * (ABNORMAL) Lipid panel with reflex to direct LDL (08/11/2025 2:16 PM EDT) Pathologist [facility] Cholesterol 165 0 - 200 mg/dL LAB CHEMISTRY METHOD 08/12/2025 12:28 PM EDT [facility] Triglycerides 229(H) 0 - 150 mg/dL LAB CHEMISTRY METHOD 08/12/2025 12:28 PM EDT [facility] HDL 65 >=40 mg/dL LAB CHEMISTRY METHOD 08/12/2025 12:28 PM EDT [facility] LDL Calculated 54 0 - 100 mg/dL LAB CHEMISTRY METHOD 08/12/2025 12:28 PM EDT [facility] Comment:Estimated LDL Calcul ated using equation: Total cholesterol - HDL cholesterol - (Triglycerides/5) VLDL Cholesterol Jermaine 45.8 mg/dL LAB CHEMISTRY METHOD 08/12/2025 12:28 PM EDT [facility] Non HDL Chol. (LDL+VLDL) 100 <145 mg/dL LAB CHEMISTRY METHOD 08/12/2025 12:28 PM EDT [facility] Chol/HDL Ratio 2.5 0.0 - 4.4 LAB CHEMISTRY METHOD 08/12/2025 12:28 PM EDT [facility] Blood Venous blood specimen / Unknown Venipuncture / Unknown 08/11/2025 2:16 PM EDT 08/11/2025 4:35 PM EDT Jerri Briseno NP LAB BLOOD ORDERABLES Final Resu lt [facility] [address] [place] [address], * Immunofixation electrophoresis serum (08/11/2025 2:16 PM EDT) Immunofixation Result, Serum No monoclonal immunoglobulins detected. LAB CHEMISTRY METHOD 08/12/2025 10:42 AM EDT [facility] Blood Venous blood specimen / Unknown Venipuncture / Unknown 08/11/2025 2:16 PM EDT 08/11/2025 4:35 PM EDT us Isaias Sweeney MD LAB BLOOD ORDERABLE S Final Result [facility] [address] [place] [address], [place] [phone] * (ABNORMAL) Immunoglobulins IgG, IgA, IgM (08/11/2025 2:16 PM EDT) Pathologist [facility] Total IgG 1,080 549 - 1,584 mg/dL LAB CHEMISTRY METHOD 08/11/2025 6:33 PM EDT [facility] IgA 623(H) 61 - 348 mg/dL LAB CHEMISTRY METHOD 08/11/2025 6:33 PM EDT [facility] IgM 44 23 - 259 mg/dL LAB CHEMISTRY METHOD 08/11/2025 6:33 PM EDT [facility] Blood Venous blood specimen / Unknown Venipuncture / Unknown 08/11/2025 2:16 PM EDT 08/11/2025 4:35 PM EDT us Isaias Sweeney MD LAB BLOOD ORDERABLE S Final Result Performing Organization Address [facility]/[place] Co de Phone Number [facility] [address] [place] [address], [place] [phone] * Protein electrophoresis, serum (08/11/2025 2:16 PM EDT) Total Protein 7.4 6.0 - 8.0 g/dL LAB CHEMISTRY METHOD 08/13/2025 1:58 PM EDT [facility] Albumin, Serum 3.8 2.9 - 4.1 g/dL LAB CHEMISTRY METHOD 08/13/2025 1:58 PM EDT [facility] Alpha 1 Globulin (g/dL) 0.2 0.1 - 0.5 g/dL LAB CHEMISTRY METHOD 08/13/2025 1:58 PM EDT [facility] Alpha 2 Globulin (g/dL) 0.9 0.7 - 1.5 g/dL LAB CHEMISTRY METHOD 08/13/2025 1:58 PM EDT [facility] Beta (g/dL) 1.5 0.7 - 1.5 g/dL LAB CHEMISTRY METHOD 08/13/2025 1:58 PM EDT [facility] Gamma Globulin (g/dL) 1.1 0.7 - 1.9 g/dL LAB CHEMISTRY METHOD 08/13/2025 1:58 PM EDT [facility] SPEP Interpretation Essentially normal pattern. No M-Madhu seen. LAB CHEMISTRY METHOD 08/13/2025 1:58 PM EDT [facility] Blood Venous blood specimen / Unknown Venipuncture / Unknown 08/11/2025 2:16 PM EDT 08/11/2025 4:35 PM EDT us Isaias Sweeney MD LAB BLOOD ORDERABLE S Final Result Performing Organization Address [facility]/ZIP Co de Phone Number [facility] [address] [place] [address], [place] [phone] * Protein, total (08/11/2025 2:16 PM EDT) Total Protein 7.5 6.0 - 8.0 g/dL LAB CHEMISTRY METHOD 08/11/2025 7:23 PM EDT [facility] Blood Venous blood specimen / Unknown Venipuncture / Unknown 08/11/2025 2:16 PM EDT 08/11/2025 4:35 PM EDT us Isaias Sweeney MD LAB BLOOD ORDERABLE S Final Result Performing Organization Address City/[facility]/ZIP Co de Phone Number [facility] [address] [place] [address], [place] [phone] * (ABNORMAL) Magnesium (08/11/2025 2:16 PM EDT) Only the most recent of2 resultswithin the time period is included. Pathologist [facility] Magnesium 1.5(L) 1.9 - 2.6 mg/dL LAB CHEMISTRY METHOD 08/12/2025 1:47 PM EDT [facility] Blood Venous blood specimen / Unknown Venipuncture / Unknown 08/11/2025 2:16 PM EDT 08/11/2025 4:35 PM EDT Jerri Briseno NP LAB BLOOD ORDERABLES Final Resu lt Performing Organization Address City/[facility]/ZIP Co de Phone Number [facility] [address] [place] [address], [place] [phone] * Lactate dehydrogenase (08/11/2025 2:16 PM EDT) [facility] LDH 244 120 - 246 unit/L LAB CHEMISTRY METHOD 08/11/2025 6:18 PM EDT [facility] Blood Venous blood specimen / Unknown Venipuncture / Unknown 08/11/2025 2:16 PM EDT 08/11/2025 4:35 PM EDT Isaias Sweeney MD LAB BLOOD ORDERABLE S Final Result Performing Organization Address City/[facility]/ZIP Co de Phone Number [facility] [address] [place] [address], [place] [phone] * Cortisol (08/11/2025 2:16 PM EDT) Pathologist [facility] Cortisol 21.7 mcg/dL LAB CHEMISTRY METHOD 08/11/2025 7:18 PM EDT [facility] Blood Venous blood specimen / Unknown Venipuncture / Unknown 08/11/2025 2:16 PM EDT 08/11/2025 4:35 PM EDT Narrative [facility] - 08/11/2025 7:18 PM EDT CORTISOL REFERENCE RANGE 8 AM SPEC: 5.0-23.0 mcg/dL 4 PM SPEC: 3.0-16.0 mcg/dL 8 PM SPEC: <5.0 mcg/dL us Isaias Sweeney MD LAB BLOOD ORDERABLE S Final Result Performing Organization Address [facility]/[place] Co de Phone Number [facility] [address] [place] [address], [place] [phone] * Beta 2 microglobulin, serum (08/11/2025 2:16 PM EDT) Beta-2 Microglobulin 1.6 0.7 - 1.8 mg/L LAB CHEMISTRY METHOD 08/11/2025 6:28 PM EDT [facility] Blood Venous blood specimen / Unknown Venipuncture / Unknown 08/11/2025 2:16 PM EDT 08/11/2025 4:35 PM EDT Isaias Sweeney MD LAB BLOOD ORDERABLE S Final Result Performing Organization Address [facility] [[email or web address]] de Phone Number [facility] [address] [place] [address], [place] [phone] * US Pelvis Non OB Limited or Followup (08/08/2025 1:42 PM EDT) Anatomical Region Laterality Modality Body, Pelvis Ultrasound 08/08/2025 3:35 PM EDT Narrative 08/08/2025 3:37 PM EDT Ultrasound of the urinary bladder. Urinary bladder was not well distended with prevoid volume of 65.1 cc. No focal lesions were identified. Postvoid volume is 0.8 cc. Bilateral ureteral jets were identified. Prostate volume is 18.1 cc. CONCLUSIONS: Poor distended urinary bladder without evidence of focal abnormalities. -------- FINAL REPORT -------- Dictated By: Kath Islas Dictated Date: 08/08/2025 15:35 ET Assigned Physician: Kath Islas Reviewed and Electronically Signed By: Kath Islas Signed Date: 08/08/2025 15:37 ET Workstation ID: [id number] Transcribed By: Self Edit Transcribed Date: 08/08/2025 15:35 ET Procedure Note Kath Islas MD - 08/08/2025 Ultrasound of the urinary bladder. Urinary bladder was not well distended with prevoid volume of 65.1 cc. Nofocal lesions were identified. Postvoid volume is 0.8 cc. Bilateralureteral jets were identified. Prostate volume is 18.1 cc. CONCLUSIONS: Poor distended urinary bladder without evidence of focalabnormalities. -------- FINAL REPORT -------- Dictated By: Kath Islas Dictated Date: 08/08/2025 15:35 ET Assigned Physician: Kath Islas Reviewed and Electronically Signed By: Kath Islas Signed Date: 08/08/2025 15:37 ET Workstation ID: [id number] Transcribed By: Self Edit Transcribed Date: 08/08/2025 15:35 ET us Jerrica Read NP IMG US PROCEDURES Final Resu lt * US Abdomen Complete (08/08/2025 1:42 PM EDT) Anatomical Region Laterality Modality Body Ultrasound 08/08/2025 3:28 PM EDT Narrative 08/08/2025 3:30 PM EDT Abdominal ultrasound. History abnormal LFTs. No previous studies are available for comparison. Gallbladder is unremarkable. There is no biliary ducts dilatation. Common biliary duct measures 5 mm. Liver is enlarged measuring 19.3 cm in long axis. It revealed heterogeneous coarse increased echogenicity most likely due to steatosis or chronic hepatocellular disease. No focal lesions were identified within the liver. There is normal flow in the portal vein. Spleen is normal in size and echogenicity measuring 11.3 cm in long axis. Visualized portion of the IVC, abdominal aorta, pancreas and right kidney are unremarkable. There is a 1.9 x 2.1 x 1.8 cm cyst arising from the upper pole of the left kidney. There is small, 4 mm nonobstructing stone in the upper pole of the left kidney. CONCLUSIONS: Hepatomegaly. Abnormal echogenicity of the liver most likely due to steatosis or chronic hepatocellular disease. Cyst and small nonobstructing stone in the upper pole of the left kidney. -------- FINAL REPORT -------- Dictated By: Kath Islas Dictated Date: 08/08/2025 15:28 ET Assigned Physician: Kath Islas Reviewed and Electronically Signed By: Kath Islas Signed Date: 08/08/2025 15:30 ET Workstation ID: [id number] Transcribed By: Self Edit Transcribed Date: 08/08/2025 15:28 ET Procedure Note Kath Islas MD - 08/08/2025 Abdominal ultrasound. History abnormal LFTs. No previous studies are available for comparison. Gallbladder is unremarkable. There is no biliary ducts dilatation. Commonbiliary duct measures 5 mm. Liver is enlarged measuring 19.3 cm in longaxis. It revealed heterogeneous coarse increased echogenicity most likelydue to steatosis or chronic hepatocellular disease. No focal lesions wereidentified within the liver. There is normal flow in the portal vein.Spleen is normal in size and echogenicity measuring 11.3 cm in long axis.Visualized portion of the IVC, abdominal aorta, pancreas and right kidneyare unremarkable. There is a 1.9 x 2.1 x 1.8 cm cyst arising from the upper pole of the leftkidney. There is small, 4 mm nonobstructing stone in the upper pole of theleft kidney. CONCLUSIONS: Hepatomegaly. Abnormal echogenicity of the liver most likelydue to steatosis or chronic hepatocellular disease. Cyst and smallnonobstructing stone in the upper pole of the left kidney. -------- FINAL REPORT -------- Dictated By: Kath Islas Dictated Date: 08/08/2025 15:28 ET Assigned Physician: Kath Islas Reviewed and Electronically Signed By: Kath Islas Signed Date: 08/08/2025 15:30 ET Workstation ID: [id number] Transcribed By: Self Edit Transcribed Date: 08/08/2025 15:28 ET us Jerrica Read NP IMG US PROCEDURES Final Resu lt * (ABNORMAL) Urinalysis with reflex microscopic and culture (08/08/2025 9:31 AM EDT) Only the most recent of2 resultswithin the time period is included. Specific [place] Urine >=1.030 1.003 - 1.030 LAB URINALYSIS - AUTOMATED METHOD 08/08/2025 12:43 PM [facility] pH, Urine 6.0 5.0 - 8.0 pH LAB URINALYSIS - AUTOMATED METHOD 08/08/2025 12:43 PM [facility] Leukocytes, Urine Negative Negative LAB URINALYSIS - AUTOMATED METHOD 08/08/2025 12:43 PM [facility] Nitrite, Urine LAB URINALYSIS - AUTOMATED METHOD 08/08/2025 12:43 PM [facility] Comment:Unable to interpret due to color interference Protein, Urine 100(A) <=Trace mg/dL LAB URINALYSIS - AUTOMATED METHOD 08/08/2025 12:43 PM [facility] Glucose, Urine Negative Negative mg/dL LAB URINALYSIS - AUTOMATED METHOD 08/08/2025 12:43 PM [facility] Ketones, Urine 15(A) Negative mg/dL LAB URINALYSIS - AUTOMATED METHOD 08/08/2025 12:43 PM [facility] Urobilinogen, Urine 4.0(A) 0.2 - 1.0 mg/dL LAB URINALYSIS - AUTOMATED METHOD 08/08/2025 12:43 PM [facility] Bilirubin, Urine Small(A) Negative LAB URINALYSIS - AUTOMATED METHOD 08/08/2025 12:43 PM [facility] Blood, Urine Moderate(A) Negative LAB URINALYSIS - AUTOMATED METHOD 08/08/2025 12:43 PM EDT [facility] RBC, Urine 10.0(H) 0 - 4 /HPF LAB URINALYSIS - AUTOMATED METHOD 08/08/2025 12:43 PM [facility] WBC, Urine 4.8(H) 0 - 4 /HPF LAB URINALYSIS - AUTOMATED METHOD 08/[facility]25 [facility] Squamous Epithelial, Urine 30 0 - 60 /LPF LAB URINALYSIS - AUTOMATED METHOD 08/08/2025 12:43 PM EDT [facility] Non-Squamous Epithelial, Urine Rare Transitional epithelial cells. /LPF LAB URINALYSIS - AUTOMATED METHOD 08/08/2025 12:43 PM [facility] Bacteria, Urine Negative Negative /HPF LAB URINALYSIS - AUTOMATED METHOD 08/08/2025 12:43 PM [facility] Hyaline Casts, Urine 28.5(H) 0 - 3 /LPF LAB URINALYSIS - AUTOMATED METHOD 08/08/2025 12:43 PM [facility] Other Casts, Urine 2-5 Fine Granular casts. /LPF LAB URINALYSIS - AUTOMATED METHOD 08/08/2025 12:43 PM [facility] Mucus, Urine Large None /HPF LAB URINALYSIS - AUTOMATED METHOD 08/08/2025 12:43 PM [facility] Urine Urine specimen obtained by clean catch procedure / Unknown Non-blood Collection / Unknown 08/08/2025 9:31 AM EDT 08/08/2025 9:31 AM EDT us Jerrica Read NP LAB URINE ORDERABLES Final R esult [facility] [address] [place] [address], * Heath urine culture tube (08/08/2025 9:31 AM EDT) Only the most recent of2 resultswithin the time period is included. Extra Tube Hold for add-ons. 08/08/2025 12:01 PM EDT [facility] Comment:Auto resulted. Urine Urine specimen obtained by clean catch procedure / Unknown Non-blood Collection / Unknown 08/08/2025 9:31 AM EDT 08/08/2025 9:31 AM EDT us Jerrica Read TALENT DEVELOPMENT DIRECTOR LAB URINE ORDERABLES Final R esult Performing Organization Address City/[facility]/ZIP Co de Phone Number [facility] [address] [place] [address], [place] [phone] * (ABNORMAL) Microalbumin creatinine urine ratio (08/08/2025 9:31 AM EDT) Creatinine, Urine 834.0 mg/dL LAB CHEMISTRY METHOD 08/08/2025 6:47 PM EDT [facility] Microalb, Ur 345.0(H) 0.0 - 29.0 mg/L LAB CHEMISTRY METHOD 08/08/2025 6:47 PM EDT [facility] Microalb/Crea t Ratio 41(H) <30 mg/g creat LAB CHEMISTRY METHOD 08/08/2025 6:47 PM EDT [facility] Urine Urine specimen obtained by clean catch procedure / Unknown Non-blood Collection / Unknown 08/08/2025 9:31 AM EDT 08/08/2025 9:31 AM EDT us Jerrica Read TALENT DEVELOPMENT DIRECTOR LAB URINE ORDERABLES Final R esult [facility] [address] [place] [address], [place] [phone] * Lipase (08/08/2025 9:31 AM EDT) Lipase 54 13 - 75 unit/L LAB CHEMISTRY METHOD 08/08/2025 4:46 PM EDT [facility] Blood Venous blood specimen / Unknown Venipuncture / Unknown 08/08/2025 9:31 AM EDT 08/08/2025 9:31 AM EDT us Jerrica Read TALENT DEVELOPMENT DIRECTOR LAB BLOOD ORDERABLES Final R esult [facility] [address] [place] [address], [place] [phone] * Hemoglobin A1c (08/08/2025 9:31 AM EDT) Hemoglobin A1C 5.2 <6.5 % LAB CHEMISTRY METHOD 08/08/2025 1:16 PM EDT [facility] Mean Bld Glu Estim. 103 mg/dL LAB CHEMISTRY METHOD 08/08/2025 1:16 PM EDT [facility] Blood Venous blood specimen / Unknown Venipuncture / Unknown 08/08/2025 9:31 AM EDT 08/08/2025 9:31 AM EDT us Jerrica Read TALENT DEVELOPMENT DIRECTOR LAB BLOOD ORDERABLES Final R esult Performing Organization Address [facility] [[email or web address]] de Phone Number [facility] [address] [place] [address], [place] [phone] * Amylase (08/08/2025 9:31 AM EDT) Amylase 30 25 - 115 unit/L LAB CHEMISTRY METHOD 08/08/2025 4:46 PM EDT [facility] Blood Venous blood specimen / Unknown Venipuncture / Unknown 08/08/2025 9:31 AM EDT 08/08/2025 9:31 AM EDT us Jerrica Read TALENT DEVELOPMENT DIRECTOR LAB BLOOD ORDERABLES Final R esult [facility] [address] [place] [address], [place] [phone] * (ABNORMAL) Comprehensive metabolic panel (08/08/2025 9:31 AM EDT) Only the most recent of2 resultswithin the time period is included. Sodium 138 133 - 145 mmol/L LAB CHEMISTRY METHOD 08/08/2025 4:51 PM EDT [facility] Potassium 3.3(L) 3.5 - 5.5 mmol/L LAB CHEMISTRY METHOD 08/08/2025 4:51 PM [facility] Chloride 99 96 - 110 mmol/L LAB CHEMISTRY METHOD 08/08/2025 4:51 PM [facility] CO2 31 21 - 32 mmol/L LAB CHEMISTRY METHOD [facility] Anion Gap 8 3 - 11 LAB CHEMISTRY METHOD 08/08/2025 4:51 PM [facility] Glucose 122(H) 70 - 100 mg/dL LAB CHEMISTRY METHOD 08/08/2025 4:51 PM [facility] BUN 9 5 - 25 mg/dL LAB CHEMISTRY METHOD 08/08/2025 4:51 PM [facility] Creatinine 0.97 0.70 - 1.30 mg/dL LAB CHEMISTRY METHOD 08/08/2025 4:[facility] eGFR 98 >=60 mL/min/1. 73m2 LAB CHEMISTRY METHOD 08/08/2025 4:51 PM [facility] Comment:Calculation based on the Chronic Kidney Disease Epidemiology Collaboration (CKD-EPI) equation refit without adjustment for race. BUN/Creatinine Ratio 9.3 LAB CHEMISTRY METHOD 08/08/2025 4:51 PM [facility] Calcium 9.1 8.5 - 10.5 mg/dL LAB CHEMISTRY METHOD 08/08/2025 4:51 PM EDT [facility] AST (SGOT) 227(H) 10 - 42 unit/L LAB CHEMISTRY METHOD 08/08/2025 4:51 PM EDT [facility] ALT (SGPT) 91(H) 10 - 60 unit/L LAB CHEMISTRY METHOD 08/08/2025 4:51 PM EDT [facility] Alkaline Phosphatase 98 42 - 121 unit/L LAB CHEMISTRY METHOD 08/08/2025 4:51 PM EDT [facility] Total Protein 7.5 6.0 - 8.0 g/dL LAB CHEMISTRY METHOD 08/08/2025 4:51 PM [facility] Albumin 4.3 3.2 - 5.0 g/dL LAB CHEMISTRY METHOD 08/08/2025 4:51 PM [facility] Total Bilirubin 2.5(H) 0.0 - 1.4 mg/dL LAB CHEMISTRY METHOD 08/08/2025 4:51 PM EDT [facility] Blood Venous blood specimen / Unknown Venipuncture / Unknown 08/08/2025 9:31 AM EDT 08/08/2025 9:31 AM EDT us Jerrica Read NP LAB BLOOD ORDERABLES Final R esult [facility] [address] [place] [address], * CT Abdomen Pelvis wo Contrast (08/05/2025 2:44 PM EDT) Anatomical Region Laterality Modality Body Computed Tomogra phy 08/05/2025 3:07 PM EDT Impressions 08/05/2025 3:22 PM EDT Impression: 1. 2 mm nonobstructing left renal calculus. 2. No ureteral calculus or obstruction. 3. Growing 2 cm left upper pole renal mass, possibly a complicated cyst but a solid mass is not excluded. Follow-up renal ultrasound recommended for further characterization. 4. New 6 x 2 x 4 cm presacral soft tissue mass, without apparent involvement of the underlying bone or the adjacent rectum. This may represent a mesenchymal tumor such as a myelolipoma, fibrous tumor, lymphoma, or a post infectious/inflammatory process. Further workup with PET/CT and/or percutaneous biopsy may be necessary to determine the significance of this finding. Nayely METCALF ([id number]) -------- FINAL REPORT -------- Dictated By: Laura Triplett Dictated Date: 08/05/2025 15:07 ET Assigned Physician: Laura Triplett Reviewed and Electronically Signed By: Laura Triplett Signed Date: 08/05/2025 15:22 ET Workstation ID: [id number] Transcribed By: Self Edit Transcribed Date: 08/05/2025 15:07 ET Narrative 08/05/2025 3:22 PM EDT History: Bilateral flank pain. Personal history of urinary tract calculi. Comparison: 11/24/21 Technique: Helical volumetric imaging of the abdomen and pelvis was performed without intravenous or oral contrast (stone aragon protocol). DLP: 699.42 mGy/cm [employer] Iterative reconstruction technique Findings: The kidneys are normal in position and size. A 2 mm nonobstructing calculus is seen in the upper pole of left kidney. No ureteral calculi are identified and there is no hydronephrosis. The perinephric fat is preserved. A 2 cm circumscribed round mass projects exophytically from the upper pole of the left kidney and is well above water attenuation. It has increased in size from 1.6 cm on the previous exam. The unenhanced liver is remarkable for diffusely diminished parenchymal attenuation, consistent with fatty infiltration. This limits evaluation for masses. The gallbladder is physiologically distended. No evidence of biliary obstruction is seen. The spleen, pancreas and adrenal glands are unremarkable. No ascites is seen. No developing lymphadenopathy is noted. The prostate, seminal vesicles and urinary bladder are unremarkable. No evidence of bowel obstruction is seen. There is fibrofatty proliferation around the rectum and submucosal fat deposition is seen throughout the colon, suggesting chronic colorectal inflammation. The appendix is normal in caliber in the right lower quadrant There is a soft tissue mass in the presacral fat, new from the previous study, measuring approximately 6 cm in length by 1.9 cm AP by 4 cm transverse. No erosion of the adjacent bone is identified. The lesion appears separate from the rectum and is centered in the midline. Right inguinal herniorrhaphy sequela are noted. The regional skeleton is intact. Procedure Note Laura Triplett MD - 08/05/2025 History: Bilateral flank pain. Personal history of urinary tractcalculi. Comparison: 11/24/21 Technique: Helical volumetric imaging of the abdomen and pelvis wasperformed without intravenous or oral contrast (stone aragon protocol). DLP: 699.42 mGy/cm 908 Devices Iterative reconstruction technique Findings: The kidneys are normal in position and size. A 2 mm nonobstructingcalculus is seen in the upper pole of left kidney. No ureteral calculi areidentified and there is no hydronephrosis. The perinephric fat ispreserved. A 2 cm circumscribed round mass projects exophytically from the upper poleof the left kidney and is well above water attenuation. It has increasedin size from 1.6 cm on the previous exam. The unenhanced liver is remarkable for diffusely diminished parenchymalattenuation, consistent with fatty infiltration. This limits evaluationfor masses. The gallbladder is physiologically distended. No evidence ofbiliary obstruction is seen. The spleen, pancreas and adrenal glands are unremarkable. No ascites is seen. No developing lymphadenopathy is noted. The prostate,seminal vesicles and urinary bladder are unremarkable. No evidence of bowel obstruction is seen. There is fibrofattyproliferation around the rectum and submucosal fat deposition is seenthroughout the colon, suggesting chronic colorectal inflammation. Theappendix is normal in caliber in the right lower quadrant There is a soft tissue mass in the presacral fat, new from the previousstudy, measuring approximately 6 cm in length by 1.9 cm AP by 4 cmtransverse. No erosion of the adjacent bone is identified. The lesionappears separate from the rectum and is centered in the midline. Right inguinal herniorrhaphy sequela are noted. The regional skeleton is intact. IMPRESSION: Impression: 1. 2 mm nonobstructing left renal calculus. 2. No ureteral calculus or obstruction. 3. Growing 2 cm left upper pole renal mass, possibly a complicated cystbut a solid mass is not excluded. Follow-up renal ultrasound recommendedfor further characterization. 4. New 6 x 2 x 4 cm presacral soft tissue mass, without apparentinvolvement of the underlying bone or the adjacent rectum. This mayrepresent a mesenchymal tumor such as a myelolipoma, fibrous tumor,lymphoma, or a post infectious/inflammatory process. Further workup withPET/CT and/or percutaneous biopsy may be necessary to determine thesignificance of this finding. Telerad DIXON ([id number]) -------- FINAL REPORT -------- Dictated By: Laura Triplett Dictated Date: 08/05/2025 15:07 ET Assigned Physician: Laura Triplett Reviewed and Electronically Signed By: Laura Triplett Signed Date: 08/05/2025 15:22 ET Workstation ID: [id number] Transcribed By: Self Edit Transcribed Date: 08/05/2025 15:07 ET Maximo Rivera MD IM CT PROCEDURES Final Result * (ABNORMAL) CBC auto differential (08/05/2025 2:36 PM EDT) WBC 8.6 4.8 - 10.8 K/mcL LAB HEMETOLOGY METHOD 08/05/2025 2:50 PM EDT [facility] RBC 4.30(L) 4.50 - 5.50 M/mcL LAB HEMETOLOGY METHOD 08/05/2025 2:50 PM EDT [facility] Hemoglobin 14.2 13.5 - 17.5 g/dL LAB HEMETOLOGY METHOD 08/05/2025 2:50 PM EDT [facility] Hematocrit 41.7(L) 42.0 - 54.0 % LAB HEMETOLOGY METHOD 08/05/2025 2:50 PM EDT [facility] MCV 98.1(H) 79.0 - 98.0 FL LAB HEMETOLOGY METHOD 08/05/2025 2:50 PM EDT [facility] MCH 33.4(H) 27.0 - 32.0 pcg LAB HEMETOLOGY METHOD 08/05/2025 2:50 PM EDT [facility] MCHC 34.1 32.0 - 37.0 g/dL LAB HEMETOLOGY METHOD 08/05/2025 2:50 PM EDT [facility] RDW 13.9 11.0 - 15.0 % LAB HEMETOLOGY METHOD 08/05/2025 2:50 PM EDT [facility] Platelets 182 130 - 400 K/mcL LAB HEMETOLOGY METHOD 08/05/2025 2:50 PM EDT [facility] MPV 10.3 7.0 - 11.0 FL LAB HEMETOLOGY METHOD 08/05/2025 2:50 PM EDT [facility] NRBC 0.0 <1.0 % LAB HEMETOLOGY METHOD 08/05/2025 2:50 PM EDT [facility] NRBC Absolute 0.00 <0.10 K/mcL LAB HEMETOLOGY METHOD 08/05/2025 2:50 PM EDT [facility] Neutrophils Relative 72.0 % LAB HEMETOLOGY METHOD 08/05/2025 2:50 PM EDT [facility] Lymphocytes Relative 19.9 % LAB HEMETOLOGY METHOD 08/05/2025 2:50 PM EDT [facility] Monocytes Relative 6.3 % LAB HEMETOLOGY METHOD 08/05/2025 2:50 PM EDT [facility] Eosinophils Relative 0.6 % LAB HEMETOLOGY METHOD 08/05/2025 2:50 PM EDT [facility] Basophils Relative 0.9 % LAB HEMETOLOGY METHOD 08/05/2025 2:50 PM EDT [facility] Immature Granulocytes Relative 0.3 % LAB HEMETOLOGY METHOD 08/05/2025 2:50 PM EDT [facility] Neutrophils Absolute 6.19 1.50 - 7.00 K/mcL LAB HEMETOLOGY METHOD 08/05/2025 2:50 PM EDT [facility] Lymphocytes Absolute 1.71 1.00 - 5.00 K/mcL LAB HEMETOLOGY METHOD 08/05/2025 2:50 PM EDT [facility] Monocytes Absolute 0.54 0.20 - 1.00 K/mcL LAB HEMETOLOGY METHOD 08/05/2025 2:50 PM EDT [facility] Eosinophils Absolute 0.05 0.00 - 0.50 K/mcL LAB HEMETOLOGY METHOD 08/05/2025 2:50 PM EDT [facility] Basophils Absolute 0.08 0.00 - 0.20 K/mcL LAB HEMETOLOGY METHOD 08/05/2025 2:50 PM EDT [facility] Immature Granulocytes Absolute 0.03 0.00 - 0.03 K/[facility] HEMETOLOGY METHOD 08/05/2025 2:50 PM EDT [facility] Blood Venous blood specimen / Unknown Venipuncture / Unknown 08/05/2025 2:36 PM EDT 08/05/2025 2:40 PM EDT Maximo Rivera MD LAB BLOOD ORDERABLES Fin al Result [facility] [address] [place] [address], * External Colonoscopy Report (04/08/2020 11:55 AM EDT) Anatomical Region Laterality Modality Endoscopy us Historical Provider GI~PROCEDURE ORDERABLES F inal Result from Last 3 Months or Most Recently Relevant to Health Maintenance Insurance [facility]) Care Teams Radiagraph Operator Relationship Specialty Start Date End Date Jerri Briseno NP [address] [facility] [place] [address] PCP - General Primary Care 08/05/25
--- OUTSIDE RECORDS SUMMARY | 2025-09-23 13:41 | XMS_ITS | Encounter Summary ---
Author Organization [employer] Address [address] [place] [address] Care Team Providers Care Stamp Redemption Clerk Name Role Phone Jerri Briseno TRUST ADMINISTRATOR Primary Care Provider [phone] Encounter Details Date Type Department Care Team (Late st Contact Info) Description 08/11/2025 Results [facility] [address] [place] [address] Jerrica Mujica, DANK [address] [place] [id number] Social History Tobacco Use Types Packs/Day Years [...] for your loved ones. For example, children's service worker or elderly care for an older [...] Info) Description 10/07/2025 8:15 AM EST Appointment [facility] CT Scan [address] [place] [address] 12/02/2025 9:00 AM EST Office Visit [facility] Hematology Oncology [address] [place] [phone] Isaias Sweeney MD [address] [place] [phone] 01/13/2026 8:30 AM EST Office Visit Internal Medicine - [address] [phone] Jerri Briseno NP [address] [place] [address] 02/02/2026 1:20 PM EDT Consult Gastroenterology - [address] [place] [phone] Yani Simmons NP [address] [address] documented as of this encounter Visit Diagnoses Not on filedocumented in this encounter Additional Health Concerns Assessment Noted Time PHQ-9 Depression Total Score: 13 025 10:22 AM EDT documented as of this encounter Care Teams Stamp Redemption Clerk Relationship Specialty Start Date End Date Jerri Briseno NP [address] [place] [id number] PCP - General Primary Care 08/05/25 documented as of this encounter
--- OUTSIDE RECORDS SUMMARY | 2025-09-23 13:41 | XMS_ITS | Data Portability ---
Author Organization DIXON Weaver s, [address] Address [address] [place] [address] Care Team Providers Care Command And Control Systems Integrator Name Role Phone [facility] Provider Assessment No assessment recorded. Plan of Treatment Reminders Order Date Submit Date Provider Last Modified By Organization Details Last Modified Time Details Appointments None recorded . Lab None recorded . Referral orthoped ic surgeon referral [email or web address] [facility] (Remi Goodwin), [address] [place], [address], 3 17:50:35 Procedures None recorded . Surgeries None recorded . Imaging XR, foot, 2 view 2022 023 [facility], [address] [place], [address], 3 12:03:45 XR, elbow, 3 or more view 2022 023 [email or web address], [address] [place], [address], 3 17:50:35 Medication Orders cephalex in 500 mg capsule 2022 023 [id number], [address] [place] [address], [place], [id number], 3 10:17:53 naproxen 500 mg tablet 2022 023 [id number], [address] [place] [address], [place], [id number], 11:44:05 cephalex in 500 mg capsule 2022 023 [facility] #[id number], [address], [place], [id number], 11:43:55 diclofen ac sodium 50 mg tablet,d elayed release 2022 023 [facility] #[id number], [address] [place] [address], [place], [id number], 10:44:34 Patient TargetsNo targets recorded. Patient Instructions Encounter Date Encounter Id Patient Instructions Last Modified By Organization Details Last Modified Time 01/12/2023 [id number] application of splint, long arm* [email or web address] Not available 01/19/2023 09:44:50 03/16/2023 [id number] plantar fasciitis: care instructions Not available 03/16/2023 11:43:47 plantar fasciitis: exercises Not available 03/16/2023 11:43:47 cellulitis: care instructions Not available 03/16/2023 11:44:26 04/16/2023 [id number] cuts: care instructions Not available 04/16/2023 10:17:45 We were not able to repair the cut today due to it being too long since it happened. We have steri stripped it together and cleaned it out. Keep it clean and dry and monitor for signs of infection as we discussed. contorl pain with over the counter meds as we talked about. because of the depth of the wound and the setting we do want to do some oral antibiotics for you to prevent infection. Not available 04/16/2023 10:20:43 Reason for Referral Orthopedic Surgeon Referral for Fracture of olecranon Referring Physician: [facility], Encounter Date: 01/12/2023 Results Created Date Observation Date Name Description Value Unit Range Abnormal Flag Note LastModifiedBy Organization Detail LastModifiedTime 01/13/20 23 01/12/2023 XR, elbow , 3 or more view No observ ation record ed. [email or web address] [facility] [address] [place], [address], 01/12/2023 17:51:39 03/16/20 23 03/16/2023 XR, foot, 2 view No observ ation record ed. [email or web address] [facility] [address] [place], [address], 03/16/2023 13:11:41 Result Notes None recorded. Problems Name Problem SNOMED Code Status Onset Date Resolution Date Notes Provider Name and Address Organization Details Recorded Time Gastroesophage al reflux disease 993826758 Active 2022 CORNELIUS DEPINTO null, PA - [facility] 15:04:34 Kidney stone 76458066 Active 2022 CORNELIUS DEPINTO null, PA - [facility] 15:06:06 Problem Notes None recorded. Procedures Surgical History Date Name Laterality Status Provider Name and Address Organization Details Recorded Time Splint Appl, Long Arm (11+) completed IVELISSE CHAVEZ MD [address] [facility] [place], [address], [place] - [facility] 01/12/2023 17:49:02 procedure on abdomen completed CORNELIUS DEPINTO PA - [facility] 01/12/2023 15:05:29 colonoscopy completed CORNELIUS DEPINTO PA - [facility] 01/12/2023 15:07:43 endoscopy completed CORNELIUS DEPINTO PA - [facility] 01/12/2023 15:07:48 extraction of wisdom tooth completed CORNELIUS DEPINTO PA - [facility] 01/12/2023 15:08:02 Imaging Results None recorded. Procedure Notes None recorded. Medical Equipment None Reported. Allergies No known drug allergies Medications Name Sig Start Date Stop Date Status Note LastModified by Organization Details LastModified Time benzonatate 100 mg capsule TAKE 1 CAPSULE BY MOUTH THREE TIMES DAILY NEEDED 01/12 completed Not Available Not Available Not Available cephalexin 500 mg capsule Take 1 capsule 3 times a day by oral route for 7 days. 2022 active Not Available Not Available Not Avai lable omeprazole 20 mg capsule,del ayed release TAKE 1 CAPSULE BY MOUTH DAILY 03/16 completed Not Available Not Available Not Available diclofenac sodium 50 mg tablet,cindy yed release Take 1 tablet twice a day by oral route for 15 days. 03/16 completed Not Available Not Available Not Available ondansetron 4 mg disintegrat ing tablet DISSOLVE 1 TABLET ON THE TONGUE EVERY 8 HOURS NEEDED 01/12 completed Not Available Not Available Not Available fluticasone propionate 50 mcg/actuati on nasal spray,suspe nsion SHAKE LIQUID AND USE 2 SPRAYS IN EACH NOSTRIL EVERY DAY 01/12 completed Not Available Not Available Not Available naproxen 500 mg tablet TAKE 1 TABLET BY MOUTH TWICE DAILY FOR 10 DAYS active Not Available Not Available No t Available amoxicillin 875 mg-potassiu m clavulanate 125 mg tablet TAKE 1 TABLET BY MOUTH TWICE DAILY 01/12 completed Not Available Not Available Not Available Vitals Date Recorded Pain severity - 0-10 verbal numeric rating [Score] - Reported Body height Body mass index (BMI) Body weight Respiratory rate Oxygen saturation Oxygen saturation in Arterial blood by Pulse oximetry Heart rate Body temperature Systolic And Diastolic Provider Name and Address Organization Details Last Updated DateTime 3 8 177.8 cm 25.4 kg/m2 24893.8 5 g 18 /min 100 % 100 % 76 /min 97.9 [degF] 133/85 mm[Hg] CORNELIUS HANNON PA - [facility] 3 15:09:44 Date Recorded Body height Body mass index (BMI) Body weight Heart rate Respiratory rate Oxygen saturation Oxygen saturation in Arterial blood by Pulse oximetry Body temperature Systolic And Diastolic Provider Name and Address Organization Details Last Updated DateTime 3 177.8 cm 25.4 kg/m2 75131.8 5 g 76 /min 18 /min 99 % 99 % 98 [degF] 150/95 mm[Hg] ORALIA Amado PA - [facility] 3 10:45:35 Date Recorded Body height Body mass index (BMI) Body weight Pain severity - 0-10 verbal numeric rating [Score] - Reported Body temperature Heart rate Oxygen saturation Oxygen saturation in Arterial blood by Pulse oximetry Respiratory rate Systolic And Diastolic Provider Name and Address Organization Details Last Updated DateTime 3 179.07 cm 24.8 kg/m2 37952.6 6 g 8 97.8 [degF] 72 /min 97 % 97 % 16 /min 118/78 mm[Hg] BULMAOR MICHAELS PA - [facility] 3 09:46:37 Social History Question Answer Notes LastModified by Mercaux Details LastModified Time Tobacco Smoking Status Never Smoker CORNELIUS rdz PA [facility] 01/12/2023 15:06:22 Which Illicit Or Recreational Drugs Have You Used? Marijuana Occasionally Information not available 01/12/2023 Have You Had Direct Contact, Or Contact During Intimacy, With Monkeypox Rash, Scabs, Or Body Fluids From A Person With Monkeypox? No Information not available 01/12/2023 Have You Recently Traveled Abroad? No Information not available 01/12/2023 Sex: Unknown Functional Status Question Answer Note LastModified by Mercaux Details LastModified Time How many times per week do you consume alcohol? 1-2 times per week Information not available 01/12/2023 Do you use any illicit or recreational drugs? Yes Information not available 01/12/2023 Do you or have you ever used any other forms of tobacco or nicotine? No Information not available 01/12/2023 What is your level of alcohol consumption? Occasional Information not available 01/12/2023 Are you currently [facility]? [facility] Information not available 04/16/2023 Mental Status None recorded. Family History Relationship Description Onset Age of this Age Resolved Age Notes LastModified by Organization Details LastModified Time Paternal Uncle Kidney disease Not available 2022 15:04:59 Mother Malignant neoplasm of breast Not available 2022 15:05:37 Father Malignant neoplasm of pancreas Not available 2022 15:05:44 Father Seizure disorder Not available 2022 15:05:51 Medical History No medical history recorded. Immunizations Vaccine Type Date Status Note Provider Nam e and Address Organization Details Recorded Time Td (adult), 2 Lf tetanus toxoid, preservative free, adsorbed 3 completed DIXON Alba [address] [place], [address], [place] - [facility] 04/16/2023 10:46:06 Past Encounters Encounter ID Performer Location Encounter Start Date Encounter Closed Date Diagnosis/Indication Diagnosis SNOMED-CT Code Diagnosis ICD10 Code Diagnosis IMO Codes Diagnosis Note [id number] [facility] [address] [address] 09/09/2021 09:20:40 09/09/2021 11:22:36 [id number] IVELISSE CHAVEZ MD [address] [address] 01/12/2023 10:43:52 01/12/2023 17:50:35 Injury of elbow 303621843 S59.902A Fracture of olecranon 28 4795817 S52.024B [id number] Nany Ley MD [address] [address] 03/16/2023 10:29:15 03/16/2023 11:46:58 Pain in right foot 2146327289 13711 M79.671 Swelling and erythema is very severe, although I dont see a site where possible infection could have been introduced , there could have been a puncture wound at some point. I am treating empiricall y for possible cellulitis with Antibiotic s Plantar fasciitis 20280614 003 M72.2 Cellulitis of right foot 4036931741 7758051 L03.115 Suspect infection due to severity of pain, erythema, and inflammati on [id number] DIXON Santillan [address] [facility] [address] [place] [id number] 04/16/2023 08:15:49 04/16/2023 10:51:16 Laceration of left thumb 2355801979 2543590 S61.012A Health Concerns Section Related Observation LastModified by Organization Detai ls LastModified Time None Recorded Concern Status LastModified by Organization Details LastModified Time None Recorded Advance Directives Directive None Recorded Payers Insurance Date Sequence Insurance Name Policy Number Policy Rodriguez Covered Member ID Rodriguez Member ID Guarantor Name 04/16/2023 1 AECHAD [id number] Edgardo Leiva [id number] Edgardo Leiva Notes Date Note Type Note Provider Name and Address Organization Details Recorded Time 3 text/html ROS as noted in the HPI Fell down stairs while carrying a box this morning. Now he has pain and swelling of the left elbow. He had some bleeding from puncture wound during the fall (possibly from nail on the stairs). Bleeding has resolved. He has decreased ROM with Flexion and Extension. IVELISSE CHAVEZ MD [address] [place], [address], [place] [facility] 01/21/2023 11:41:03 3 text/html Foot/Ankle UCReported by PatientHPIFor associated symptoms, patient reportsswellingbut reportsno weakness,no numbness,no tingling,no redness,no warmth, andno ecchymosis. For location, patient reportsright. For problem, patient reportsswelling. For severity, patient reportsmoderate. For duration, patient reports2 weeks. For alleviating factors, (hurts at rest and worse with weight bearing). Nany Ley MD [address] [place], [address], [facility] 03/16/2023 11:54:31 3 text/html UC Wound/LacerationReporte d by Patient DIXON Alba [address] [place], [address], [place] [facility] 04/16/2023 10:46:31
--- OUTSIDE RECORDS SUMMARY | 2025-09-23 13:41 | XMS_ITS | Clinical Summary ---
Author Organization [facility] Address [address] [place] [address] Phone Care Team Providers Care Home Restoration Service Supervisor Name Role Phone Pcp, Unknown Primary Care Provider Unavailabl e Social History Tobacco Use Types Packs/Day Years Used Date Smoking Tobacco: Never Assessed Education Answer Date Recorded Are you interested in more education? Not on vickey e 02/04/2025 Are you concerned about learning? Not on file 02/04/2025 No 02/04/2025 No 02/04/2025 Digital Access Answer Date Recorded No 02/04/2025 No 02/04/2025 Reliable internet access at home? Not on file 02/04/2025 Device with a working camera? Not on file Sex and Gender Information Value Date Recorded Sex Assigned at Not on file Legal Sex Male 11:42 AM EDT Gender Identity Not on file Sexual Orientation Not on file Plan of Treatment Health Maintenance Due Date Last Done Comments Adult Td,Tdap Booster 1979 LIPID PANEL 1979 DEPRESSION SCREENING 1991 SMOKING Hx and SMOKELESS TOB ACCO SCREENING 02/09/1992 HEPATITIS C SCREENING 1997 HIV ONE-TIME SCREENING (18-6 5 YEARS) 1997 COLOGUARD 02/09/2024 COLONOSCOPY 02/09/2024 COLORECTAL CANCER SCREENING 02/09/2024 FIT TEST 02/09/2024 FOBT 02/09/2024 SIGMOIDOSCOPY 02/09/2024 VIRTUAL COLONOSCOPY 02/09/2024 INFLUENZA VACCINE (#1) 2025 COVID-19 VACCINE (2024-2 6 season) 2025 HEPATITIS A VACCINES Aged Out No long er eligible based on patient's age to complete this topic HIB VACCINES Aged Out No longer eligi ble based on patient's age to complete this topic IPV VACCINES Aged Out No longer eligi ble based on patient's age to complete this topic MENINGOCOCCAL VACCINES (ACWY) Aged Out No longer eligible based on patient's age to complete this topic MENINGOCOCCAL VACCINES (B) Aged Out N o longer eligible based on patient's age to complete this topic PNEUMOCOCCAL VACCINES (0-49 years) Aged Out No longer eligible based on patient's age to complete this topic Medical Devices Not on file Insurance [employer] PPO Care Teams Home Restoration Service Supervisor Relationship Specialty Start Date End Date Pcp, Unknown PCP - General 02/04/25 Additional Source Comments The information contained in this document represents components of the legal health record. It is not the complete legal health record.[facility]
--- OUTSIDE RECORDS SUMMARY | 2025-09-23 13:41 | XMS_ITS | Encounter Summary ---
Author Organization [facility] Address [address] [place] [address] Care Team Providers Care Media Theorist And Author Of Name Role Phone Jerri Briseno NP Primary Care Provider [phone] Reason for Referral * Consultation (Routine) - Closed Specialty Diagnoses / Procedures Referred By Contac t Referred To Contact Nephrology Diagnoses Low serum potassium Microalbuminuria Jerrica Mujica NP [address] [place] [address] Phone: tel: fax: [facility] [address] [place] [address] Phone: tel: fax: Referral ID Status Reason Start Date Expiration Date V isits Requested Visits Authorized [id number] Closed Specialty Services Required 08/11/2025 08/11/2026 1 1 Encounter Details Date Type Department Care Team (Late st Contact Info) Description 08/11/2025 [facility] [address] [place] [address] Jerrica Mujica NP [address] [place] [address] Social History Tobacco Use Types Packs/Day Years [...] care for your loved ones. For example, director maternal child or elderly care for an older adult? [...] Last Filled Start Date End Date magnesium glycinate 100 mg magnesium capsule Take 200 mg (2 capsules total) by mouth at bedtime. 180 capsule 3 08/11/2025 5 potassium chloride (KLOR-CON M10) 10 mEq CR tablet Take 1 tablet (10 mEq total) by mouth 2 (two) times a day for 4 days. Tablet may be swallowed whole (do not crush/chew/suck on) OR broken in half and each half swallowed separately OR dissolved (whole tablet) in ~4 ounces of water (allow ~2 minutes to dissolve, stir well and administer immediately). 8 each 08/11/2025 5 documented in this encounter Plan of Treatment Upcoming Encounters Date Type Department Care Team (Late st Contact Info) Description 10/07/2025 8:15 AM EST Appointment [facility] CT Scan [address] [place] [address] 12/02/2025 9:00 AM EST Office Visit [facility] Hematology Oncology [address] [place] [phone] Mirlande-Isaias Duong MD [address] [place] [phone] 01/13/2026 8:30 AM EST Office Visit Internal Medicine - [facility] [address] [place] [address] Jerri Briseno NP [address] [place] [address] 02/02/2026 1:20 PM EDT Consult Gastroenterology - [address] [facility] [address] [phone] Yani Simmons NP [address] [facility] [address] [place] [address] Scheduled Orders Name Type Priority Associated Diagnoses Orde r Schedule Potassium Lab Routine Low serum potassium 1 Occurrences starting 08/11/2025 until 08/11/2026 Scheduled Referrals Name Type Priority Associated Diagnoses Order Schedule Ambulatory referral to Nephrology Outpatient Referral Routine Low serum potassium Microalbuminuria 1 Occurrences starting 08/11/2025 until 08/11/2026 documented as of this encounter Results * (ABNORMAL) Magnesium (08/11/2025 2:16 PM EDT) Magnesium 1.5(L) 1.9 - 2.6 mg/dL LAB CHEMISTRY METHOD 08/12/2025 1:[address] [facility] Blood Venous blood specimen / Unknown Venipuncture / Unknown 08/11/2025 2:16 PM EDT 08/11/2025 4:35 PM EDT us Jerri Briseno NP LAB BLOOD ORDERABLES Final Resu lt [facility] [address] [place] [address], documented in this encounter Visit Diagnoses Diagnosis Low serum potassium- Primary Microalbuminuria Proteinuria Hypomagnesemia Disorders of magnesium metabolism documented in this encounter Additional Health Concerns Assessment Noted Time PHQ-9 Depression Total Score: 13 025 10:22 AM EDT documented as of this encounter Care Teams Media Theorist And Author Of Relationship Specialty Start Date End Date Jerri Briseno NP [address] [place] [address] PCP - General Primary Care 08/05/25 documented as of this encounter
== END 2025-09-23 12:29 | disposition home or self-care (01) ==
LOC: HO.HKAS 11:38
PROVIDERS: PCP Nurse Practitioner Family; Referring Provider Internal Medicine; Visit Provider Internal Medicine Nephrology
DX: E87.6 Hypokalemia (principal); N28.89 Other specified disorders of kidney and ureter; N20.0 Calculus of kidney; N28.1 Cyst of kidney, acquired; M10.9 Gout, unspecified
CPT/HCPCS: 99204